=== PATIENT | female | born 1990 | race Caucasian/White ===

== ENCOUNTER → 2018-06-02 16:05 | Outpatient (CLI) | payer OTHER, SELFPAY ==
[2018-06-02 16:10] LABS: Microscopic, Urine URINE MICROSCOPIC (MICROSCOPIC)
[2018-06-02 16:32] LABS: Basophils % 0.6 % (0.1-2.0); Eosinophils # 0.1 K/mm3 (0.0-0.4); Eosinophils % 1.1 % (0.1-12.0); Hematocrit 36.4 % (37.0-47.0); Hemoglobin 11.8 g/dL (12.2-16.2); Lymphocytes % 33.6 K/mm3 (10-50); Mean Corpuscular HGB Conc 32.5 g/dL (31.8-35.4); Mean Corpuscular Hemoglobin 28.8 pg (27.0-31.2); Mean Corpuscular Volume 88.6 fl (81-99); Mean Platelet Volume 9.2 fl (7.4-10.4); Monocytes # 0.3 K/mm3 (0.1-1.0); Monocytes % 4.4 % (1.7-9.3); Neutrophils # 3.5 K/mm3 (1.8-7.8); Neutrophils % 60.3 % (37.0-80.0); Platelet Count 176 K/mm3 (142-424); Red Cell Distribution Width 14.2 % (11.5-17.5); White Blood Count 5.9 K/mm3 (4.8-10.8)
[2018-06-02 17:42] LABS: Appearance,Urine CLEAR (Clear); Bilirubin,Urine Negative (Negative); Blood, Urine Negative (Negative); Color,Urine YELLOW (Yellow); Glucose,Urine (UA) Negative (Negative); Ketones,Urine Negative (Negative); Leukocyte Esterase,Urine Negative (Negative); Nitrate,Urine Negative (Negative); Protein,Urine Negative (Negative); Specific Gravity, Urine >= 1.030 (1.005-1.030); Urobilinogen,Urine 0.2 EU/dl (0.2)
[2018-06-02 18:55] LABS: HCG Qualitative, Serum Negative (Negative)
[2018-06-02 19:24] LABS: Alanine Aminotransferase 19 U/L (12-78); Albumin Level 3.8 gm/dL (3.4-5.0); Albumin/Globulin Ratio 1.2 (1.1-1.8); Alkaline Phosphatase 45 U/L (46-116); Anion Gap 12.1 mEq/L (5-15); Aspartate Amino Transferase 10 U/L (15-37); Bilirubin,Total 0.2 mg/dL (0.2-1.0); Blood Urea Nitrogen 11 mg/dL (7-18); Calcium 8.7 mg/dL (8.5-10.1); Carbon Dioxide 27 mmol/L (21.0-32.0); Chloride 105 mmol/L (98-107); Creatinine,Serum 0.75 mg/dL (0.55-1.02); Estimated Glomerular Filt Rate 93 ml/min (>60); GFR (African American) 112 ML/MIN (>60); Globulin 3.1 gm/dl (1.3-3.2); Glucose 90 mg/dL (74-106); Potassium 4.1 mmoL/L (3.5-5.1); Sodium 140 mmol/L (136-145); Total Protein,Serum 6.9 gm/dL (6.4-8.2)
[2018-06-02 19:31] LABS: WBC,Urine Occasional #/hpf (0-3)
[2018-06-02 19:32] LABS: Bacteria,Urine Trace /lpf; Mucus,Urine 1+ /lpf; Squamous Epithelial Cell,Urine Occasional #/hpf (0-5)
== END ==
PROVIDERS: PCP Family Medicine; Visit Provider Obstetrics & Gynecology
DX: Z01.818 Encounter for other preprocedural examination (principal); Z30.2 Encounter for sterilization; D22.5 Melanocytic nevi of trunk
CPT/HCPCS: 36415; 80053; 81001; 84703; 85025

== ENCOUNTER → 2018-07-10 16:53 | Outpatient (CLI) | payer OTHER, SELFPAY | LOC: LAB 16:53 → LAB.DROPOF 07-11 08:44 | PROVIDERS: Visit Provider Obstetrics & Gynecology | DX: N72 Inflammatory disease of cervix uteri (principal) | CPT/HCPCS: 87070; 87077; 87205 ==

== ENCOUNTER → 2018-07-22 09:37 | Outpatient (CLI) | payer OTHER, SELFPAY ==
--- NOTE | 2018-07-22 09:38 | US_ITS ---
US transvaginal Ordering Physician: Danny May MD Patient Age: 28 years: Female HISTORY: ITS.REASON: PELVIC PAIN . Endometriosis. Irregular periods. Patient had child and December 2017. Had tubal ligation shortly thereafter. Now prolonged bleeding pelvic pain. Considering partial hysterectomy. TECHNIQUE: Transvaginal pelvic ultrasound COMPARISON :No previous studies FINDINGS Retroverted retroflexed uterus. No fibroids evident. Uterus appears normal in size 8.1 cm length x 4.4 cm x 5.3 cm Homogeneous hypoechoic thickening Endometrium-measuring up to 1.25 cm AP. Also note a small 5.5 x 8 mm mm focal fluid collection seen at top of the endometrium stripe at fundus...... No increased flow. No wall thickening. This may may reflect some blood or fluid at the top of endometrial stripe, rather than submucosal fluid. Ovaries with normal color Doppler flow bilaterally.. Right ovary 3.2 x 1.1 x 2.4 cm Several folliclesLargest follicle 8 mm. Left ovary is larger than the right measuring 4.1 cm 2.5 x 2.8 cm.. Numerous moderate size follicles. Largest 1.2 cm size. Others less than 8 days 10 mm.. . moderate amount of free fluid seen in the cul-de-sac. Most notable fluid collection here measuring 3 cm x 1.3 cm.. X 3.9 cm transverse. This this overlies the fundus of this retroverted uterus. IMPRESSION: Retroverted retroflexed uterus. Endometrial stripe appears thickened measuring up to 1.2 cm small focal fluid collection at top of the endometrial stripe towards fundus. . Left ovary upper normal in size 4.1 cm. Slightly larger than right. Moderate size Follicles of both ovaries . moderate free fluid the cul-de-sac. Noted
== END ==
PROVIDERS: PCP Family Medicine; Visit Provider Obstetrics & Gynecology
DX: R10.2 Pelvic and perineal pain (principal)
CPT/HCPCS: 76830

== ENCOUNTER → 2021-12-07 12:02 | Outpatient (CLI) | payer OTHER, SELFPAY ==
--- NOTE | 2021-12-07 12:10 | US_ITS ---
FINAL REPORT CLINICAL HISTORY: [facility] Pelvic Pain/Menorrhagia/dysmenorrhea FINDINGS: Transvaginal sonographic images of the pelvis were obtained. The uterus is mildly enlarged measuring 9.4 x 5.0 x 3.8 cm. The endometrium measures 8 mm, which is within normal limits. No uterine mass is identified. The right ovary measures 2.7 cm in length and left ovary measures 3.7 cm in length. Normal blood flow seen to the ovaries. There is a small 1.8 cm left ovarian cyst. There is no evidence of free fluid. IMPRESSION: Mildly enlarged uterus. 1.8 cm left ovarian cyst. Reviewed, Interpreted and Dictated by Cayetano Egan III, MD Transcribed by Sarah Chavez Authenticated by Cayetano Egan III, MD on 12/07/2021 02:17:[address] [facility]
[2021-12-07 12:57] LABS: Basophils # 0.1 K/mm3 (0-0.2); Basophils % 2.4 % (0.1-2.0); Eosinophils # 0.1 K/mm3 (0.0-0.4); Eosinophils % 1.1 % (0.1-12.0); Hematocrit 38.5 % (37.0-47.0); Hemoglobin 12.9 g/dL (12.2-16.2); Lymphocytes # 1.8 K/mm3 (0.7-4.5); Mean Corpuscular HGB Conc 33.6 g/dL (31.8-35.4); Mean Corpuscular Hemoglobin 32.5 pg (27.0-31.2); Mean Corpuscular Volume 96.5 fl (81-99); Mean Platelet Volume 9.6 fl (7.4-10.4); Monocytes # 0.3 K/mm3 (0.1-1.0); Monocytes % 5.4 % (1.7-9.3); Neutrophils # 3.3 K/mm3 (1.8-7.8); Neutrophils % 59.1 % (37.0-80.0); Platelet Count 185 K/mm3 (142-424); Red Blood Count 3.99 M/mm3 (4.20-5.40); Red Cell Distribution Width 13.9 % (11.5-17.5); White Blood Count 5.5 K/mm3 (4.8-10.8)
== END ==
PROVIDERS: Visit Provider Obstetrics & Gynecology
DX: N93.9 Abnormal uterine and vaginal bleeding, unspecified (principal); R10.2 Pelvic and perineal pain; N92.0 Excessive and frequent menstruation with regular cycle; N94.6 Dysmenorrhea, unspecified; G89.29 Other chronic pain; Z86.2 Personal history of diseases of the blood and blood-forming organs and certain disorders involving the immune mechanism
CPT/HCPCS: 36415; 76830; 84443; 85025

== ENCOUNTER → 2021-12-18 09:34 | Outpatient (CLI) | payer OTHER, SELFPAY ==
[2021-12-18 09:55] LABS: Basophils # 0.1 K/mm3 (0-0.2); Basophils % 1.3 % (0.1-2.0); Eosinophils # 0.1 K/mm3 (0.0-0.4); Eosinophils % 1.6 % (0.1-12.0); Hematocrit 40.3 % (37.0-47.0); Hemoglobin 13.4 g/dL (12.2-16.2); Lymphocytes # 1.6 K/mm3 (0.7-4.5); Lymphocytes % 21.1 % (10-50); Mean Corpuscular HGB Conc 33.1 g/dL (31.8-35.4); Mean Corpuscular Hemoglobin 31.8 pg (27.0-31.2); Mean Corpuscular Volume 95.8 fl (81-99); Mean Platelet Volume 9.8 fl (7.4-10.4); Monocytes # 0.4 K/mm3 (0.1-1.0); Monocytes % 5.2 % (1.7-9.3); Neutrophils # 5.3 K/mm3 (1.8-7.8); Neutrophils % 70.8 % (37.0-80.0); Platelet Count 160 K/mm3 (142-424); Red Blood Count 4.21 M/mm3 (4.20-5.40); Red Cell Distribution Width 13.9 % (11.5-17.5); White Blood Count 7.5 K/mm3 (4.8-10.8)
[2021-12-18 10:21] LABS: Alanine Aminotransferase 18 U/L (12-78); Albumin Level 4.4 g/dl (3.5-5.0); Alkaline Phosphatase 42 U/L (38-126); Anion Gap 12.8 mEq/L (5-15); Aspartate Amino Transferase 21 U/L (14-36); Bilirubin,Total 0.2 mg/dl (0.2-1.3); Blood Urea Nitrogen 10 mg/dl (7-17); Carbon Dioxide 24 mmol/L (22.0-30.0); Chloride 108 mmol/L (98-107); Estimated Glomerular Filt Rate 98 ml/min (>60); GFR (African American) 119 ML/MIN (>60); Globulin 2.2 g/dL (1.3-3.2); Glucose 55 mg/dl (74-100); Potassium 3.8 mmoL/L (3.5-5.1); Sodium 141 mmol/L (136-145); Total Protein,Serum 6.6 g/dl (6.3-8.2)
[2021-12-18 10:24] LABS: HCG Qualitative, Serum Negative (Negative)
== END ==
PROVIDERS: Visit Provider Obstetrics & Gynecology
DX: Z01.818 Encounter for other preprocedural examination (principal); Z11.52 Encounter for screening for COVID-19; R10.2 Pelvic and perineal pain; G89.29 Other chronic pain; N80.9 Endometriosis, unspecified; N92.0 Excessive and frequent menstruation with regular cycle; N94.6 Dysmenorrhea, unspecified
CPT/HCPCS: 36415; 80053; 84703; 85025; 86850; C9803; U0003; U0005

== ENCOUNTER 2021-12-20 10:27 | Observation (INO) | payer OTHER, SELFPAY ==
[2021-12-20] VITALS (23 sets, daily range): BP systolic 88–137; BP diastolic 40–71; PULSE 80–103; RESP 16–20; TEMP 36.4–43; O2SAT 95–100
--- NOTE | 2021-12-20 08:40 | P.PN_ITS ---
[facility] Anesthesia Checklist - Patient Identification Patient Identification: Arm Band - Structural Data Admitted From: Home Planned Operative Procedure/s: Lap. assisted vaginal hysterectomy Consent for Planned Operative Procedure(s) Verified: Yes - NPO Status Verified Time NPO: 00:00 - Additional verifications Anesthesia Reactions: No Hx Blood Transfusions: No Blood Transfusion Reaction: No - Airway Assessment C-Spine Mobility Assessed: Yes TMJ Mobility Assessed: Yes Dentition: Good Dentition - Neurological Assessment Level of Consciousness: Awake Hx Seizures: No Numbness or tingling in extremities: No - Anesthesia Plan Anesthesia Risk discussed: Yes Anesthesia Plan: Verified ASA Class: I Anesthesia Type: General [facility] History I have reviewed the patient's past medical history: Yes Medical History: Reports:: Anxiety Denies:: Cancer, Diabetes Mellitus Type 1, Diabetes Mellitus Type 2, Internal Pacemaker, MRSA *Have you ever received a pneumonia vaccine?: No *Have you received a flu vaccine this season?: No Other Medical History: Denies: Blood Transfusion Reaction Anesthesia experience/problems:: None Other Surgeries: Yes: Tubal Ligation (2018), Other. No: Pacemaker Amputation: No Fractures: No - *Social History Last grade of school completed: Advanced degree Smoking Status: Current every day smoker Tobacco Type: cigarettes # Packs/Day (cigarettes): 1 Alcohol Intake: never Alcohol Intake Frequency:: other Substance Use Type: denies use *Occupational Status:: employed Housing: house Household Members: children *Travel in the last 8 weeks: None - Psychiatric History Pschychiatric History:: Reports:: Anxiety Family Hx:: Asthma, Cancer, Diabetes, Hyperlipidemia, Hypertension FLOOR STEWARD/STEWARDESS history: Endometriosis, Tubal Ligation
[2021-12-20 10:01] LABS: Coronavirus 19, PCR Not Detected (NotDetected); Influenza A, PCR Not Detected (NotDetected); Influenza B, PCR Not Detected (NotDetected)
[2021-12-20 12:28] LABS: Microscopic,Cath URINE MICROSCOPIC (MICROSCOPIC)
[2021-12-20 12:38] LABS: Appearance,Urine/Cath CLEAR (Clear); Bilirubin,Cath Negative (Negative); Blood, Urine/Cath 1+ (Negative); Color,Urine/Cath YELLOW (Yellow); Glucose,Urine/Cath (UA) Negative (Negative); Ketones,Urine/Cath Negative (Negative); Leukocyte Esterase,Cath Negative (Negative); Nitrate,Cath Negative (Negative); PH,Urine/Cath 8.5 (5.0-8.5); Protein,Urine/Cath 2+ (Negative); Urobilinogen,Cath 0.2 EU/dl (0.2)
--- NOTE | 2021-12-20 12:42 | SUR.OPER ---
1238 family provided an update by karol Lawton RN
--- NOTE | 2021-12-20 13:03 | HMH.ANESI ---
[facility] Anesthesia Record Part I Intake, IV Amount: 1,200 Estimated blood loss (mL): 50 Urine output (mL): 150 Blood Pressure: 120/65 SaO2: 95 Pulse Rate: 91 Respiratory Rate: 17 Temperature: 97.5 F Patient is:: Awake Stable to PACU at:: 13:00
--- NOTE | 2021-12-20 13:13 | HMH.OPNOTE ---
Date of procedure: 12/20/21 Pre-op Diagnosis:: 1. Menorrhagia 2. Chronic pelvic pain 3. Dysmenorrhea 4. Dyspareunia 5. Endometriosis 6. History of thrombocytopenia Post-op Diagnosis:: 1. Menorrhagia 2. Chronic pelvic pain 3. Dysmenorrhea 4. Dyspareunia 5. Endometriosis 6. History of thrombocytopenia Procedure performed:: Laparoscopic assisted vaginal hysterectomy, bilateral salpingectomy Surgeon:: Sasha Hampton DO Nonprofit Financial Controller(s):: Foreign Weeks MD NUCLEAR POWERPLANT MECHANIC:: Amilcar Sewell Anesthesia: GETA Estimated blood loss (mL): 50 Operative findings:: On bimanual exam, uterus midline, freely moveable and normal size and shape. No adnexal masses palpated. Multiparous cervix appeared grossly normal. On laparoscopic exam, liver, gallbladder and stomach appeared grossly normal. Bowel appeared grossly normal. Uterus, bilateral fallopian tubes and ovaries appeared grossly normal. No evidence of adhesions or endometriosis Operative note:: Risks, benefits and alternatives including but not limited to infection, bleeding, damage to adjacent structures, VTE and risks with anesthesia discussed with patient. Patient voiced understanding and wishes to proceed with surgery. Patient was wheeled back to the operating room and placed under general anesthesia without difficulty. She was placed in the dorsal lithotomy position and prepped and draped in normal sterile fashion. A bimanual exam was performed. No adnexal masses felt. Chen catheter was placed and noted to be draining clear urine prior to the start of the procedure. Weighted Auvard was placed into the vaginal vault. Single tooth tenaculum was used to grasp anterior lip of the cervix. Uterus sound to 10. [place] manipulator was inserted into the cervical os and attached to the tenaculum. Attention was then turned to the abdomen. Skin just below umbilicus was injected with 0.5 % marcaine. A 2cm infraumbilical vertical incision was made. Veress needle was tested and inserted intraabdominally without difficulty. Opening pressure was 5 mm Hg. Abdomen was insulflated with CO2 gas to a pressure of 15 mm Hg. An 12 mm disposable trocar was inserted into the abdomen without difficulty. Obturator was removed and sleeve was left in place. Laparoscope was inserted through the trocar sleeve. Pelvis and abdomen was viewed in its entirety. Pictures were taken. See findings above. Left lower quadrant and right lower quadrant was transilluminated and skin incision site was injected with 0.5% marcaine. 5 mm skin incision were made in the left and right lower quadrant approximately 2 cm above and 2 cm medially to the ASIS. Disposable 5 mm trocars were placed bilaterally under direct laparoscopic visualization without difficulty. Graspers were used to grasp the fimbriated end of the left fallopian tube. The mesoovarium and mesosalpinx were doubly coagulated and transected with Harmonic scalpel without difficulty. Transection was carried through the round ligament and broad ligament in the same manner. Transection was carried down to the level of the uterine artery. The uterine artery was identified. It was doubly coagulated and transected with Harmonic scalpel. Vascular clip was placed on left uterine artery. Same procedure was carried out on the right side. Leaving both ovaries in situ. The anterior leaf of the broad ligament was then dissected to the midline bilaterally, establishing a bladder flap with a combination of sharp and blunt dissection. The laparoscope was removed and attention was turned to the vagina.The acorn manipulator and single tooth tenaculum were removed from the cervix. The anterior and posterior lips of the cervix were grasped with Ketty tenaculums. A circumferential injection with 0.5% marcaine was made at the cervicovaginal junction. A circumferential incision was made at the cervicovaginal junction. The anterior and posterior colopotomies were accomplished with a combination of blunt and sharp disse
[2021-12-20 13:34] LABS: Bacteria,Urine/Cath 2+ /lpf; RBC,Urine/Cath Occasional # /hpf (0-3); WBC,Urine/Cath Occasional #/hpf (0-3)
--- NOTE | 2021-12-20 14:46 | P.CONPHA_ITS ---
[facility] Pharmacy VTE Monitoring - Patient Demographics Admission date: 12/20/21 Report Date: 12/20/21 Time: 14:46 Allergies/Adverse Reactions: Patient Allergies hydromorphone [From Dilaudid] Allergy (Verified 12/20/21 08:13) Height: 1.68 m Weight: 56.245 kg - VTE Risk Clinical Trial Participant: No - Prophylaxis VTE Prophylaxis Ordered?: Yes Types of VTE Prophylaxis: IPCS Knee High (POST OP) Location of Applied Device: Bilateral Lower Extremeties
--- NOTE | 2021-12-20 15:44 | PC.NURSE ---
1453- Pt medicated with Dilaudid 1mg IV as well as Phenergan 6.25mg IV (both diluted) for pain. Rates pain at 10/10. Pt also provided with abdominal pillow and binder for pain relief / abd support.
--- NOTE | 2021-12-20 15:46 | PC.NURSE ---
1510-Pt assisted up to bathroom to void. [place] gown removed and regular gown put on. Bed draw sheet also changed. Peripad and panty applied while up to bathroom. Voiding was not measured. Pt did void a moderated amt of blood tinged urine. Assisted back to bed without difficulty. Scuds reapplied.
--- NOTE | 2021-12-20 15:49 | PC.NURSE ---
called and updated on pt's status and requesting a heating pad. V/O received for KPAD. R/V.
--- NOTE | 2021-12-20 15:53 | PC.NURSE ---
KPAD and Incentive Spirometer provided and usage explained. Verbalized understanding. Pt is drowsy at this time from previous pain medication.
--- NOTE | 2021-12-20 17:10 | PC.NURSE ---
Pt sleeping soundly at this time. Sig other at bs in sleep chair watching TV.
--- NOTE | 2021-12-20 17:40 | PC.NURSE ---
Pt assisted to bathroom to void again. Having slight difficulty this time emptying bladder. Had pt to lean forward and occasionally rock to assist with emptying. Pt was able to void more and denied feeling like she needed to go anymore. After assisting pt back to bed, urine specimen hat placed in toilet to measure next void. Pt sent to [facility] to get mashed potatoes to eat instead of hospital mashed potatoes.
--- NOTE | 2021-12-20 18:57 | PC.NURSE ---
Report to NOVA Feng.
--- NOTE | 2021-12-20 20:45 | PC.NURSE ---
WHEN ASKED IF THE PAIN MEDICINE HELPED SHE SAID DO YOU WANT ME TO LIE TO YOU OR TELL YOU THE TRUTH,I SAID THE TRUTH,SHE SAID IT REALLY DID NOT HELP,IT FEELS LIKE A CAT ON HER INSIDE SCRATCHING HER INSIDES.WILL GIVE HER HER BRANDO.TORADOL TO SEE IF THIS WILL HELP.PT HAS A HEATING PAD AND A BINDER ON HER ABD.
--- NOTE | 2021-12-20 22:30 | PC.NURSE ---
PT RANG OUT AND ASKED WHEN WOULD IT BE TIME FOR HER MEDICINE,TOLD HER 2300.PT REPORTS SHE JUST WOKE UP AND HAVING PAIN,TOLD HER I COULD GIVE IT TO HER ABOUT 15 MINS,AND SHE SAID THAT WOULD BE GREAT
--- NOTE | 2021-12-20 22:50 | PC.NURSE ---
ASSISTING PT UP TO BATHROOM,PEANUT BUTTER AND CRACKERS AND APPLE JUICE PROVIDED REQ.
--- NOTE | 2021-12-20 23:31 | PC.NURSE ---
PT SLEEPING SOUNDLY IN BED,RESP.EVEN AND UNLABORED
--- NOTE | 2021-12-21 01:05 | PC.NURSE ---
PT RANG OUT AND WANTED SOMETHING FOR NAUSEA,UPON ENTERING ROOM PT WAS IN THE BATHROOM,WITH RETURNING TO BED SHE SAID DID NOT THINK SHE SHOULD STILL HAVE THIS MUCH PAIN,REPORTED HER PAIN TO BE A 7 ON SCALE OF 0-10,SHE SAID THAT THE PAIN WAS CAUSING THE NAUSEA.TOLD HER THAT ALL SHE HAD THAT IT WAS TIME FOR WAS OXYCODONE AND THAT SHE SAID IT DID NOT TOUCH IT EARLIER,SHE SAID IT WAS WORTH A TRY,ZOFRAN 4 MG IVP WAS GIVEN AND THEN OXYCODONE 5MG PO AND TYLENOL 975MG PO WAS ALSO GIVEN BRANDO.
--- NOTE | 2021-12-21 01:54 | PC.NURSE ---
PT SLEEPING SOUNDLY,RESP.EVEN AND UNLABORED
[2021-12-21 02:20] VITALS: BP 81/45; PULSE 73; RESP 16; TEMP 36.8; O2SAT 97
--- NOTE | 2021-12-21 02:51 | PC.NURSE ---
PT HAS SLEPT OFF AND ON THROUGHTOUT THE NIGHT AFTER BEING MEDICATED,SHE REPORTS PAIN MEDICINE HAS REALLY NOT WORKED,REPORTS THE PAIN IS LIKE HAVING CONTRACTIONS,CRAMPING AND SHARP,REPORTS SHE IS PASSING FLATUS AND PT HAS VOIDED A TOTAL OF 400ML OF YELLOW URINE,SCANT VAG.BLEEDING,LAP SITES WITHOUT ANY NEW DRAINAGE.BOWEL SOUNDS NORMAL
--- NOTE | 2021-12-21 04:00 | PC.NURSE ---
AFTER REASSESING PAIN RELIEF,PT STILL C/O PAIN,THAT JUST WILL NOT GO AWAY,TRIED REASSURING PT THAT IF IT WAS GAS,THAT UP AMBULATING OR ROCKING IN CHAIR WOULD RELIEF THE GAS,PT REPORTED SHE HAD A LOT OF GAS EARLIER,OFFERED TO CALL AND PT REPORTED TO LET HER KNOW WHAT SHE SAID, WAS CALLED AND AN ORDER FOR A ONE TIME DOSE OF VISTORIL 25MG PO WAS TAKEN, SAID TO MAKE HER AWARE THAT ALL PAIN WILL NOT BE RELIEVED,WILL TAKE TIME,MAYBE VISTORIL WILL HELD HER SLEEP AND SHE WOULD TALK TO HER IN AM.
[2021-12-21 07:02] LABS: Basophils % 0.6 % (0.1-2.0); Eosinophils % 0.2 % (0.1-12.0); Hematocrit 28.1 % (37.0-47.0); Hemoglobin 9.6 g/dL (12.2-16.2); Lymphocytes # 1.1 K/mm3 (0.7-4.5); Lymphocytes % 14.2 % (10-50); Mean Corpuscular HGB Conc 34.1 g/dL (31.8-35.4); Mean Corpuscular Hemoglobin 32.5 pg (27.0-31.2); Mean Corpuscular Volume 95.4 fl (81-99); Mean Platelet Volume 9.8 fl (7.4-10.4); Monocytes # 0.3 K/mm3 (0.1-1.0); Monocytes % 4.4 % (1.7-9.3); Neutrophils # 6.1 K/mm3 (1.8-7.8); Neutrophils % 80.6 % (37.0-80.0); Platelet Count 126 K/mm3 (142-424); Red Blood Count 2.94 M/mm3 (4.20-5.40); Red Cell Distribution Width 13.8 % (11.5-17.5); White Blood Count 7.6 K/mm3 (4.8-10.8)
[2021-12-21 07:11] LABS: Anion Gap 6.6 mEq/L (5-15); Blood Urea Nitrogen 6 mg/dl (7-17); Calcium 7.6 mg/dl (8.4-10.2); Carbon Dioxide 22 mmol/L (22.0-30.0); Chloride 110 mmol/L (98-107); Creatinine Clearance Estimated 146 mL/min (50-200); Estimated Glomerular Filt Rate 145 ml/min (>60); GFR (African American) 175 ML/MIN (>60); Glucose 73 mg/dl (74-100); Potassium 3.6 mmoL/L (3.5-5.1); Sodium 135 mmol/L (136-145)
--- NOTE | 2021-12-21 07:26 | PC.NURSE ---
F/C removed by Dr. Hampton at the end of the procedure.
--- NOTE | 2021-12-21 07:49 | HMH.ANESII ---
[facility] Anesthesia Record Part II Discharge Time: 13:50 Destination: home PACU nurse assessment reviewed?: Yes Patient Condition:: Good Anesthesia Complications:: None Swallowing reflex intact?: Yes Cyanosis?: No Blood Pressure: 112/62 Pulse Rate: 103 Temperature: 98.6 F Mental Status: Alert & Oriented Pain level:: 6 Nausea and/or vomitting:: None Intake, IV Amount: 0
[2021-12-21 07:50] VITALS: BP 112/62; PULSE 103; TEMP 37
[2021-12-21 07:52] VITALS: BP 95/55; PULSE 83; RESP 18; TEMP 36.9; O2SAT 100
--- NOTE | 2021-12-21 09:36 | PC.NURSE ---
DR. HANDLEY BEDSIDE
--- NOTE | 2021-12-21 09:38 | PC.NURSE ---
0800 PT ASSISTED UP TO BATHROOM, MEDICATED FOR PAIN AT THIS TIME.
[2021-12-21 09:50] VITALS: O2SAT 100
--- NOTE | 2021-12-21 10:02 | HMH.HP ---
*Admission Date: 12/20/21 *Chief complaint: Chronic pelvic pain, Menorrhagia, dysmenorrhea, dyspareunia *History of present illness: Ms Yolie Johnston is a 31 yo [id number] who presents to [facility] for scheduled surgery. She complains of chronic pelvic pain, menorrhagia, severe dysmenorrhea and dyspareunia. FDLMP 11/29/21. The pain with her periods is debilitating. She tried Ibuprofen and then prescription Naproxen without relief. She was prescribed Tylenol #3 which just touched the pain and allowed her to get some rest. Pain and bleeding lasted 4 days. Heat offers some relief. She is not currently working. She states her employer fired her until after surgery. Pap smear was negative. Large amount of vaginal discharge noted during exam. Vaginal ID PCR demonstrated lactobacillus iners in the vagina. She was prescribed course of metronidazole. Pelvic ultrasound demonstrated mildly enlarged uterus measuring 9.4 x 5.0 x 3.8 cm. The endometrium measured 8 mm, which is within normal limits. No uterine mass is identified. The right ovary measures 2.7 cm in length and left ovary measures 3.7 cm in length. Normal blood flow seen to the ovaries. There was a small 1.8 cm left ovarian cyst. TSH and CBC within normal limits. [facility] History Medical History: Reports:: Anxiety Denies:: Cancer, Diabetes Mellitus Type 1, Diabetes Mellitus Type 2, Internal Pacemaker, MRSA, Seizures *Have you ever received a pneumonia vaccine?: No *Have you received a flu vaccine this season?: Yes Other Medical History: Reports: Other. Denies: Blood Transfusion Reaction Anesthesia experience/problems:: None Other Surgeries: Yes: Tubal Ligation (2018), Other. No: Pacemaker Amputation: No Fractures: No - *Social History Last grade of school completed: Advanced degree Smoking Status: Current every day smoker Tobacco Type: cigarettes # Packs/Day (cigarettes): 1 Alcohol Intake: never Alcohol Intake Frequency:: other Substance Use Type: denies use *Occupational Status:: employed Housing: house Household Members: children *Travel in the last 8 weeks: None - Psychiatric History Pschychiatric History:: Reports:: Anxiety Family Hx:: Asthma, Cancer, Diabetes, Hyperlipidemia, Hypertension DISK RECORDIST history: Endometriosis, Tubal Ligation Review of Systems - Constitutional Denies chills, Denies fever(s), Denies headache(s) - Eyes Denies blurry vision, Denies change in vision - ENT Denies difficulty swallowing, Denies headache(s), Denies nasal congestion - *Cardiovascular Denies chest pain, Denies shortness of breath, Denies leg swelling, Denies lightheadedness - *Respiratory Denies chest congestion, Denies cough, Denies shortness of breath - *Gastrointestinal Reports abdominal pain, Denies change in bowel habits, Denies constipation, Denies loose stools, Denies nausea, Denies vomiting - *Genitourinary Reports abnormal periods, Reports painful periods, Reports painful intercourse, Denies urinary incontinence, Denies urinary urgency, Denies vaginal discharge - *Musculoskeletal Denies muscle weakness, Denies body aches - *Neurologic Denies abnormal movements, Denies abnormal speech, Denies headache(s), Denies dizziness - Psychiatric Reports anxiety Meds Home Medications Medication Instructions Recorded Confirmed Type metroNIDAZOLE [Metronidazole] 500 mg PO BID 12/18/21 12/20/21 History Allergies Allergy/AdvReac Type Severity Reaction Status Date / Time hydromorphone [From Dilaudid] Allergy Verified 12/20/21 08:13 Exam Vital signs and Labs for Last 24 Hours: Temp Pulse Resp BP Pulse Ox 98.4 F 83 18 95/55 L 100 12/21/21 07:52 12/21/21 07:52 12/21/21 07:52 12/21/21 07:52 12/21/21 07:52 Laboratory Results - last 24 hr 12/20/21 09:56: SARS-CoV-2 (PCR) Not detected, Influenza A Untype (PCR) Not detected, Influenza Type B (PCR) Not detected 12/20/21 10:43: Urine Color Yellow, Urine Appearance Clear, Urine pH 8.5, Ur Specific Gravit
--- NOTE | 2021-12-21 10:23 | HMH.DCSUM ---
General - General Admission date:: 12/20/21 Discharge date: 12/21/21 HPI HPI: Ms Yolie Johnston is a 31 yo P3003 who presents to [facility] for scheduled surgery. She complains of chronic pelvic pain, menorrhagia, severe dysmenorrhea and dyspareunia. FDLMP 11/29/21. The pain with her periods is debilitating. She tried Ibuprofen and then prescription Naproxen without relief. She was prescribed Tylenol #3 which just touched the pain and allowed her to get some rest. Pain and bleeding lasted 4 days. Heat offers some relief. She is not currently working. She states her employer fired her until after surgery. Pap smear was negative. Large amount of vaginal discharge noted during exam. Vaginal ID PCR demonstrated lactobacillus iners in the vagina. She was prescribed course of metronidazole. Pelvic ultrasound demonstrated mildly enlarged uterus measuring 9.4 x 5.0 x 3.8 cm. The endometrium measured 8 mm, which is within normal limits. No uterine mass is identified. The right ovary measures 2.7 cm in length and left ovary measures 3.7 cm in length. Normal blood flow seen to the ovaries. There was a small 1.8 cm left ovarian cyst. TSH and CBC within normal limits. Hospital Course Hospital Course: POD # 1 s/p LAVH. BS - Patient was recovering well for postoperative day. Patient reports pain not well controlled over night but better controlled with PO medication this morning. Vital signs were: BP 95/55, HR 83, R 18, T 98.4. She was voiding without difficulty and passing flatus. Heart was regular rate and rhythm. Lungs were clear to auscultation. Abdomen was soft, nondistended, appropriate tenderness to palpation. Incisions were clean/dry and intact. Steri strips covering the incisions. Extremities were non edematous. Normal hospital course. Objective Vital signs: Temp Pulse Resp BP Pulse Ox 98.4 F 83 18 95/55 L 100 12/21/21 07:52 12/21/21 07:52 12/21/21 07:52 12/21/21 07:52 12/21/21 09:50 no acute distress - *Routine HEENT Exam Head: Present: normocephalic Eye: Absent: conjunctivae pink ENT: Present: mucous membranes moist - *Routine Neck Exam Present: full ROM - *Routine Respiratory Exam Present: CTA bilaterally - *Routine Cardiovascular Exam Present: RRR - *Routine Abdominal Exam Present: soft, normoactive bowel sounds. Absent: distended, mass Comments: appropriate mild tenderness to palpation - *Routine Extremities Exam Present: full ROM. Absent: clubbing, edema, calf tenderness - *Routine Skin Exam Absent: cyanosis, erythema, jaundice - *Routine Neurological Exam Present: alert, oriented X3, moving all extremities Results Labs on day of discharge: Labs from last 24 hours 12/21/21 12/21/21 12/20/21 06:52 06:52 10:43 WBC 7.6 RBC 2.94 L D Hgb 9.6 L Hct 28.1 L MCV 95.4 MCH 32.5 H MCHC 34.1 RDW 13.8 Plt Count 126 L MPV 9.8 Neut % (Auto) 80.6 H Lymph % (Auto) 14.2 [place] % (Auto) 4.4 Eos % (Auto) 0.2 Baso % (Auto) 0.6 Neut # (Auto) 6.1 Lymph # (Auto) 1.1 [place] # (Auto) 0.3 Eos # (Auto) 0.0 Baso # (Auto) 0.0 Sodium 135 L Potassium 3.6 Chloride 110 H Carbon Dioxide 22 Anion Gap 6.6 BUN 6 L D Creatinine 0.50 L D Estimated Creat Clear 146 Estimated GFR 145 Est GFR ( Amer) 175 D Glucose 73 L Calcium 7.6 L Urine Color Yellow Urine Appearance Clear Urine pH 8.5 Ur Specific [place] 1.020 Urine Protein 2+ Urine Glucose (UA) Negative Urine Ketones Negative Urine Blood 1+ Urine Nitrate Negative Urine Bilirubin Negative Urine Urobilinogen 0.2 Ur Leukocyte Esterase Negative Urine RBC Occasional Urine WBC Occasional Ur Squamous Epith Cells 3-5 Urine Bacteria 2+ A SARS-CoV-2 (PCR) Influenza A Untype (PCR) Influenza Type B (PCR) 12/20/21 09:56 WBC RBC Hgb Hct MCV MCH MCHC RDW Plt
== END 2021-12-21 10:50 | disposition home or self-care (01) ==
LOC: OB 10:28
PROVIDERS: Admitting Provider Obstetrics & Gynecology; PCP Family Medicine; Visit Provider Obstetrics & Gynecology
PROC: 0UT9FZZ Resection of Uterus, Via Natural or Artificial Opening With Percutaneous Endoscopic Assistance (ICD-10-PCS; CPT 58552; principal; 2021-12-20 09:45)
DX: N92.0 Excessive and frequent menstruation with regular cycle (principal); R10.2 Pelvic and perineal pain; N94.6 Dysmenorrhea, unspecified; N80.9 Endometriosis, unspecified; F17.210 Nicotine dependence, cigarettes, uncomplicated; Z20.822 Contact with and (suspected) exposure to COVID-19; D62 Acute posthemorrhagic anemia
CPT/HCPCS: 58552; 36415; 80048; 81001; 85025; 87086; 96374; C9803; G0378; J2405; U0003; U0005

== ENCOUNTER 2023-05-27 22:34 | Emergency (ER) | payer OTHER, SELFPAY ==
[2023-05-27 22:51] VITALS: BP 166/89; PULSE 89; RESP 20; TEMP 36.9; O2SAT 98; BMI 20.3
--- NOTE | 2023-05-27 22:59 | HMH.EDGENADL ---
Discharge Plan Disposition Patient Disposition: Home, Self-Care Condition: Good Prescriptions Prescriptions: No Action No Known Home Medications Referrals Follow up/Referrals: Provider,MD Hardik [Primary Care Provider] - See instructions Activity Restrictions/Add. Instructions Additional Instructions/Restrictions: At this time it was felt you are safe to be discharged home. If new or worsening symptoms please do not hesitate to return the emergency department. Please continue to follow-up with your dentist and take your antibiotics as discussed. Clinical Impressions Clinical Impression: Pain, dental Instructions Patient Instructions: DI for Dental Pain Discharge ED Provider: Alexus German General Adult HPI <Nishant Willingham MD - Last Filed: 05/27/23 23:16> General Chief complaint: Dental/Oral Stated complaint: mouth/jaw pain Time Seen by Provider: 05/27/23 22:42 Mode of Arrival: Ambulatory Source of Information: Patient Limitations: No Limitations Description of Symptoms (Recalled from ER Triage Doc. by RN): Patient has had pain in the left jacqui eof her mouth for two days. States that she went to the denist today and he said there was a pocket of infection put her on amoxicillin ibuprofen and norco. History of Present Illness HPI narrative: Patient is a 33-year-old female who presents emergency department for evaluation of dental pain. History is obtained by patient at bedside. Patient chipped her mandibular molar on a pistachio approximately 2 weeks ago, last week she had progressive pain over the site of her chipped tooth where she put a home self patch kit on. Due to worsening symptoms she presented to the dentist today who diagnosed her with periapical infection and put her on amoxicillin and discharged her with narcotics with instructions to take amoxicillin for 7 days until teeth can be extracted. Due to severe pain she presents here for continued evaluation. Pain is refractory to [id number] numbing. Related Data Home Medications Medication Instructions Recorded Confirmed No Known Home Medications 04/03/22 07/05/22 Allergies Allergy/AdvReac Type Severity Reaction Status Date / Time hydromorphone [From Dilaudid] Allergy Verified 07/05/22 11:15 PFSH <Nishant Willingham MD - Last Filed: 05/27/23 23:16> [facility] Disclaimer: The information contained in this section may have been updated after the patient was seen, as this information can be updated by other users. Medical History (Updated 05/27/23 @ 23:16 by Nishant Willingham MD) Asthma Chronic pelvic pain in female Dysmenorrhea Endometriosis determined by laparoscopy Physically able to work Postoperative anemia due to acute blood loss Routine physical examination Surgical History (Updated 04/03/22 @ 14:32 by Meagan Ochoa) History of hysterectomy History of tubal ligation Social History (Updated 04/03/22 @ 14:32 by Meagan Ochoa) Smoking Status: Current every day smoker tobacco type: cigarettes packs per day: 1 second hand exposure: No alcohol intake: never substance use type: denies use current occupational status: employed Travel in the last 8 weeks: None household members: children housing: house 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 Tooth tenderness. No significant fluctuance. No trismus.) Neck Neck exam: Present normal inspection Chest Chest inspection: Present normal ins
[2023-05-27 23:53] VITALS: BP 143/86; PULSE 81; RESP 20; TEMP 36.9
== END 2023-05-27 23:58 | disposition home or self-care (01) ==
PROVIDERS: Emergency Provider Emergency Medicine
DX: R68.84 Jaw pain (principal); K08.89 Other specified disorders of teeth and supporting structures; F17.210 Nicotine dependence, cigarettes, uncomplicated; J45.909 Unspecified asthma, uncomplicated
CPT/HCPCS: 99283

== ENCOUNTER 2023-06-21 19:25 | Emergency (ER) | payer OTHER, SELFPAY ==
--- NOTE | 2023-06-21 19:33 | XR_ITS ---
PROCEDURE INFORMATION: Exam: XR Left Hand Exam date and time: 06/21/2023 7:30 PM Age: 33 years old Clinical indication: Injury or trauma; Other: Dog pulled on thumb; Blunt trauma (contusions or hematomas); Hand; Left TECHNIQUE: Imaging protocol: Radiologic exam of the left hand. Views: 3 or more views. COMPARISON: No relevant prior studies available. FINDINGS: Bones/joints: No acute fracture or dislocation. Soft tissues: Normal. IMPRESSION: No acute fracture or dislocation.
[2023-06-21 19:45] VITALS: BP 134/83; PULSE 89; RESP 18; TEMP 36.9; O2SAT 99; BMI 20.9
--- NOTE | 2023-06-21 19:53 | EXP.UTC ---
Discharge Plan Disposition Patient Disposition: Home, Self-Care Condition: Good Prescriptions Prescriptions: No Action No Known Home Medications Referrals Follow up/Referrals: Sandy Peralta MD [Primary Care Provider] - See instructions Activity Restrictions/Add. Instructions Additional Instructions/Restrictions: *RICE, Rest the extremity, Ice 15-20 minutes 3-4 times daily, Compress- wear the wan wrap as discussed as much as possible to help reduce swelling and pain, Elevate the extremity when at rest *Wan wrap is for support and help control swelling, use it except in the shower. Be sure that is not to tight but not to loose either *Elevate when resting? *Ibuprofen 600-800mg every 6-8 hours as needed for pain an inflammation. If need something more can take Tylenol in between doses of Ibuprofen to help Immediately follow up with your family doctor for new or worsening of symptoms, or no noticeable improvement over the next 3-5 days Clinical Impressions Clinical Impression: Left thumb sprain Qualifiers: Encounter type: initial encounter Sprain of finger site: unspecified site Qualified Code(s): S63.602A - Unspecified sprain of left thumb, initial encounter Instructions Patient Instructions: DI for Finger Sprain, How To Perform RICE (Rest, Ice, Compress, Elevate) Discharge ED Provider: Gypsy Ruffin [facility] [place] HPI General Stated complaint: AO11@1500 LT hand inj Mode of Arrival: Ambulatory Source of Information: Patient Limitations: No Limitations Time Seen by Provider: 06/21/23 19:53 Description of Symptoms (Recalled from Triage Doc. 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 HEENT Symptoms (Recalled from RN notes): No Resp Symptoms (Recalled from RN notes): No Skin Symptoms (Recalled from RN notes): No MS Symptoms (Recalled from RN notes): Yes Functional Status (Recalled from RN notes): WNL History of Present Illness Provider Complaint: Patient states that she picked up her dog about 3 hours ago and it was wiggling and bent her left thumb back States that she has been having pain in her left thumb with movement States that she was still having pain so she came in to get it checked and an xray to make sure she didnt break it or something Related Data Home Medications Medication Instructions Recorded Confirmed No Known Home Medications 04/03/22 07/05/22 Allergies Allergy/AdvReac Type Severity Reaction Status Date / Time hydromorphone [From Dilaudid] Allergy Verified 07/05/22 11:15 Worker's Comp Is this a Worker's Comp case?: No [facility] Disclaimer: The information contained in this section may have been updated after the patient was seen, as this information can be updated by other users. Medical History (Updated 06/21/23 @ 20:17 by Gypsy Ruffin APRN) Anxiety Asthma Chronic pelvic pain in female Depression Dysmenorrhea Endometriosis determined by laparoscopy Physically able to work Postoperative anemia due to acute blood loss Routine physical examination Surgical History History of hysterectomy History of tubal ligation Social History (Updated 04/03/22 @ 14:32 by Meagan Ochoa) Smoking Status: Current every day smoker tobacco type: cigarettes packs per day: 1 second hand exposure: No alcohol intake: never substance use type: denies use current occupational status: employed Travel in the last 8 weeks: None household members: children housing: house 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
[2023-06-21 20:13] VITALS: BP 134/83; PULSE 89; RESP 18; TEMP 36.9; O2SAT 99
== END 2023-06-21 20:25 | disposition home or self-care (01) ==
PROVIDERS: Emergency Provider Nurse Practitioner; PCP Family Medicine
DX: S63.602A Unspecified sprain of left thumb, initial encounter (principal); F17.210 Nicotine dependence, cigarettes, uncomplicated; J45.909 Unspecified asthma, uncomplicated; W23.0XXA Caught, crushed, jammed, or pinched between moving objects, initial encounter
CPT/HCPCS: 73130; 99204; 99212; G0463

== ENCOUNTER 2024-02-05 14:55 | Emergency (ER) | payer SELFPAY ==
[2024-02-05 14:56] VITALS: BP 132/77; PULSE 124; RESP 18; TEMP 36.9; O2SAT 100; BMI 20.9
--- NOTE | 2024-02-05 15:04 | HMH.EDGENADL ---
Discharge Plan Disposition Patient Disposition: Home, Self-Care Condition: Fair Prescriptions Prescriptions: New doxycycline hyclate 100 mg capsule 100 mg PO BID 7 Days Qty: 14 0RF prednisone 50 mg tablet 50 mg PO DAILY 5 Days Qty: 5 0RF Referrals Follow up/Referrals: Sandy Peralta MD [Primary Care Provider] - See instructions Activity Restrictions/Add. Instructions Additional Instructions/Restrictions: Return to ER for any worsening signs or symptoms including shortness of breath increasing pain fever inability to tolerate oral intake. Follow-up with PCP as needed.. Clinical Impressions Clinical Impression: Rash Bug bite Qualifiers: Encounter type: initial encounter Qualified Code(s): W57.XXXA - Bitten or stung by nonvenomous insect and other nonvenomous arthropods, initial encounter Instructions Patient Instructions: DI for Rash Discharge ED Provider: Vladimir Velásquez General Adult HPI <AVILA Snowden - Last Filed: 02/05/24 17:41> General Chief complaint: Skin/Abscess/Foreign Body Stated complaint: red, swollen raised bite under right arm, rash Time Seen by Provider: 02/05/24 14:57 History of Present Illness HPI narrative: Patient presents for evaluation of a body wide rash. Patient states 2 days ago she felt something land around her right axilla and swatted away and had no sensation of stinging or biting. However she has had progressive redness that is now expanded to her entire body. The rash is nonpruritic however she feels like her heart is racing but no shortness of breath difficulty breathing difficulty eating or swallowing. She denies chest pain fever chills hemoptysis hematochezia melena nausea vomiting diarrhea. Related Data Previous Rx's Medication Instructions Recorded doxycycline hyclate 100 mg capsule 100 mg PO BID 7 days #14 caps 02/05/24 prednisone 50 mg tablet 50 mg PO DAILY 5 days #5 tabs 02/05/24 Allergies Allergy/AdvReac Type Severity Reaction Status Date / Time hydromorphone [From Dilaudid] Allergy Verified 07/05/22 11:15 [facility] <AVILA Snowden - Last Filed: 02/05/24 17:41> [facility] Disclaimer: The information contained in this section may have been updated after the patient was seen, as this information can be updated by other users. Medical History (Updated 02/05/24 @ 17:41 by AVILA Snowden) Depression Anxiety Routine physical examination Physically able to work Asthma Postoperative anemia due to acute blood loss Chronic pelvic pain in female Dysmenorrhea Endometriosis determined by laparoscopy Surgical History History of tubal ligation History of hysterectomy Social History (Updated 04/03/22 @ 14:32 by Meagan Ochoa) Smoking Status: Current every day smoker tobacco type: cigarettes packs per day: 1 second hand exposure: No alcohol intake: never substance use type: denies use current occupational status: employed Travel in the last 8 weeks: None household members: children housing: house 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 current occupational exposures/hazards: No caffeine: Yes <AVILA Snowden - Last Filed: 02/05/24 17:41> ROS Obtained: Yes Systems reviewed as appropriate & no additional complaints except as documented Physical Exam <AVILA Snowden - Last Filed: 02/05/24 17:41> General General appearance: alert and in no apparent distress ENT ENT exam: Present normal exam, normal oropharynx and mucous membranes moist Respiratory Respiratory exam: Present normal lung sounds bilaterally; Absent respiratory distress, wheezes, stridor or accessory muscle use Cardiovascular Cardiovascular exam: Present normal rhythm, tachycardia and normal heart sounds Extremities Exam Extremities exam: Present normal inspection and full ROM Neurological Exam Neurological exam: Present alert and oriented X3 Expanded Skin Exam Type of lesion: Present rash and bite/sting (In the right axilla with localized edema and induration but no fluctuance) Distribution: generalized (Rash involving the entire visible skin) Description: Present erythematous (Rash) and confluent (Rash) Medical Decision Making <AVILA Snowden - Last Filed: 02/05/24 17:41> Medical Records Medical records reviewed: Yes I reviewed the patient's medical records. Jose Inquiry Pt receiving controlled substance: No Vital Signs: 02/05/24 14:56 02/05/24 16:30 02/05/24 17:00 Temperature 98.5 F Temperature Source Oral Pulse Rate 95 H 98 H Pulse Rate [Radial] 124 H Respiratory Rate 18 Blood Pressure 106/62 L 112/70 Blood Pressure [Left Arm] 132/77 Blood Pressure Mean Blood Pressure Mean [Left Arm] 95 Blood Pressure Source [Left Arm] Automatic Cuff Blood Pressure Position [Left Arm] Sitting 02 Sat by Pulse Oximetry 100 100 100 Oxygen Delivery Method Room Air Room Air 02/05/24 17:31 02/05/24 18:16 Temperature 97.9 F Temperature Source Pulse Rate 98 H 65 Pulse Rate [Radial] Respiratory Rate 15 Blood Pressure 120/69 101/65 L Blood Pressure [Left Arm] Blood Pressure Mean 78 Blood Pressure Mean [Left Arm] Blood Pressure Source [Left Arm] Blood Pressure Position [Left Arm] 02 Sat by Pulse Oximetry 100 Oxygen Delivery Method Room Air Lab Data Lab results reviewed: Yes I reviewed the patient's lab results. Lab Results 02/05/24 15:08: Urine Color [place], Urine Appearance Clear, Urine pH 6.0, Ur Specific [place] 1.025, Urine Protein Negative, Urine Glucose (UA) Negative, Urine Ketones Negative, Urine Blood Negative, Urine Nitrate Negative, Urine Bilirubin Negative, Urine Urobilinogen 1.0, Ur Leukocyte Esterase Negative, Urine RBC Occasional, Urine WBC None, Ur Squamous Epith Cells 5-10, Urine Bacteria Trace, Urine HCG, Qual Negative 02/05/24 15:28: WBC 7.6, RBC 3.96 L, Hgb 12.3, Hct 36.3 L, MCV 91.7, MCH 31.1, MCHC 33.9, RDW 13.4, Plt Count 155, MPV 8.8, Neut % (Auto) 83.8 H, Lymph % (Auto) 10.5, [place] % (Auto) 3.6, Eos % (Auto) 1.9, Baso % (Auto) 0.2, Neut # (Auto) 6.4, Lymph # (Auto) 0.8, [place] # (Auto) 0.3, Eos # (Auto) 0.1, Baso # (Auto) 0.0, ESR 16, Sodium 140, Potassium 3.5, Chloride 107, Carbon Dioxide 27, Anion Gap 9.5, BUN 10, Creatinine 0.90, Estimated Creat Clear 84, Estimated GFR 73, Est GFR ( Amer) 88, Glucose 87, Calcium 9.1, Total Bilirubin 1.0, AST 22, ALT 19, Alkaline Phosphatase 62, Total Protein 6.9, Albumin 4.3, Globulin 2.6, Albumin/Globulin Ratio 1.7, TSH 1.11 02/05/24 15:28 02/05/24 15:28 Orders (Tests/Meds): ED MEDICATIONS Discontinued Medications Generic Name Dose Route Start Last Admin Trade Name [place] PRN Reason Stop Dose Admin Acetaminophen 1,000 mg 02/05/24 15:11 02/05/24 15:38 Acetaminophen 1,000mg/100ml Vial IV 02/05/24 15:12 1,000 mg ONCE ONE Administration Diphenhydramine HCl 50 mg 02/05/24 15:11 02/05/24 15:37 Diphenhydramine 50mg/Ml Vial IV 02/05/24 15:12 50 mg ONCE ONE Administration Famotidine 40 mg 02/05/24 16:41 02/05/24 16:50 Famotidine 20mg Tablet PO 02/05/24 16:42 40 mg ONCE ONE Administration Doxycycline Hyclate 200 mg/ 250 mls @ 166.667 mls/hr 02/05/24 15:58 02/05/24 16:07 Sodium Chloride IV 02/05/24 15:59 166.667 mls/hr ONCE ONE Administration Sodium Chloride 500 mls @ 999 mls/hr 02/05/24 16:43 Sod Chlor 0.9% 1000ml Bag IV 02/05/24 17:13 .Q31M ONE Ketorolac Tromethamine 15 mg 02/05/24 15:11 02/05/24 15:37 Ketorolac 30mg/Ml Vial IV 02/05/24 15:12 15 mg ONCE ONE Administration Methylprednisolone Sodium Succinate 125 mg 02/05/24 15:11 02/05/24 15:38 Methylprednisolone Sod Succ 125mg Vial IV 02/05/24 15:12 125 mg ONCE ONE Administration Oxycodone HCl 5 mg 02/05/24 16:40 02/05/24 17:34 Oxycodone 5mg Immediate Release Tablet PO 02/05/24 16:41 Not Given ONCE ONE Sodium Chloride 10 ml 02/05/24 15:29 Sodium Chloride 0.9% 10ml Flush Syringe IV 03/06/24 15:28 NEEDED PRN Maintain IV Site ORDERS Category Date Time Status CBC w/Auto Diff [Complete Blood Count Auto Diff] Stat Lab 02/05/24 15:28 Completed CMP [Comprehensive Metabolic Panel] Stat Lab 02/05/24 15:28 Completed ESR [Erythrocyte Sedimentation Rate] Stat Lab 02/05/24 15:28 Completed TSH [Thyroid Stimulating Hormone] Stat Lab 02/05/24 15:28 Completed UA [Urinalysis and Microscopic] Stat Lab 02/05/24 15:08 Completed Urine , HCG Qual. Stat Lab 02/05/24 15:08 Completed Medical Decision Narrative: In summary patient is a 33-year-old female who presents to the emergency department for evaluation of a rash, bug bite and tachycardia. Patient is normotensive with a blood pressure 132/77 heart rate at 124 upon arrival, but afebrile. Physical exam shows a area that appears to be a puncture wound or bite in the right axilla without any fluctuance. There is localized edema and induration surrounding this. Patient has a body wide erythematous confluent flat nonpruritic rash involving all extremities and her front and back torso. Differential diagnosis includes anaphylaxis versus tickborne disease etc. Initial workup will be conducted with hematologic labs urinalysis urine . Initial interventions include crystalloid bolus Toradol Tylenol Benadryl Solu-Medrol. Initial workup reviewed by me shows that her hematologic workup is unremarkable and nonactionable. Upon repeat evaluation patient has had resolution of her tachycardia however the rash is still been mostly refractory.. Given this Dr. Velásquez and myself had an interactive discussion with the patient regarding her symptoms and plan. She has been given first dose of doxycycline with prescription sent to her pharmacy and first dose of corticosteroids. Patient is agreeable via patient directed discharge with close follow-up with her PCP return to the ER for worsening symptoms including shortness of breath pain fever difficulty breathing or swallowing. <Vladimir Velásquez MD - Last Filed: 02/05/24 20:46> Vital Signs: 02/05/24 14:56 02/05/24 16:30 02/05/24 17:00 Temperature 98.5 F Temperature Source Oral Pulse Rate 95 H 98 H Pulse Rate [Radial] 124 H Respiratory Rate 18 Blood Pressure 106/62 L 112/70 Blood Pressure [Left Arm] 132/77 Blood Pressure Mean Blood Pressure Mean [Left Arm] 95 Blood Pressure Source [Left Arm] Automatic Cuff Blood Pressure Position [Left Arm] Sitting 02 Sat by Pulse Oximetry 100 100 100 Oxygen Delivery Method Room Air Room Air 02/05/24 17:31 02/05/24 18:16 Temperature 97.9 F Temperature Source Pulse Rate 98 H 65 Pulse Rate [Radial] Respiratory Rate 15 Blood Pressure 120/69 101/65 L Blood Pressure [Left Arm] Blood Pressure Mean 78 Blood Pressure Mean [Left Arm] Blood Pressure Source [Left Arm] Blood Pressure Position [Left Arm] 02 Sat by Pulse Oximetry 100 Oxygen Delivery Method Room Air Lab Data Lab Results 02/05/24 15:08: Urine Color [place], Urine Appearance Clear, Urine pH 6.0, Ur Specific [place] 1.025, Urine Protein Negative, Urine Glucose (UA) Negative, Urine Ketones Negative, Urine Blood Negative, Urine Nitrate Negative, Urine Bilirubin Negative, Urine Urobilinogen 1.0, Ur Leukocyte Esterase Negative, Urine RBC Occasional, Urine WBC None, Ur Squamous Epith Cells 5-10, Urine Bacteria Trace, Urine HCG, Qual Negative 02/05/24 15:28: WBC 7.6, RBC 3.96 L, Hgb 12.3, Hct 36.3 L, MCV 91.7, MCH 31.1, MCHC 33.9, RDW 13.4, Plt Count 155, MPV 8.8, Neut % (Auto) 83.8 H, Lymph % (Auto) 10.5, [place] % (Auto) 3.6, Eos % (Auto) 1.9, Baso % (Auto) 0.2, Neut # (Auto) 6.4, Lymph # (Auto) 0.8, [place] # (Auto) 0.3, Eos # (Auto) 0.1, Baso # (Auto) 0.0, ESR 16, Sodium 140, Potassium 3.5, Chloride 107, Carbon Dioxide 27, Anion Gap 9.5, BUN 10, Creatinine 0.90, Estimated Creat Clear 84, Estimated GFR 73, Est GFR ( Amer) 88, Glucose 87, Calcium 9.1, Total Bilirubin 1.0, AST 22, ALT 19, Alkaline Phosphatase 62, Total Protein 6.9, Albumin 4.3, Globulin 2.6, Albumin/Globulin Ratio 1.7, TSH 1.11 Orders (Tests/Meds): ED MEDICATIONS Discontinued Medications Generic Name Dose Route Start Last Admin Trade Name Freq PRN Reason Stop Dose Admin Acetaminophen 1,000 mg 02/05/24 15:11 02/05/24 15:38 Acetaminophen 1,000mg/100ml Vial IV 02/05/24 15:12 1,000 mg ONCE ONE Administration Diphenhydramine HCl 50 mg 02/05/24 15:11 02/05/24 15:37 Diphenhydramine 50mg/Ml Vial IV 02/05/24 15:12 50 mg ONCE ONE Administration Famotidine 40 mg 02/05/24 16:41 02/05/24 16:50 Famotidine 20mg Tablet PO 02/05/24 16:42 40 mg ONCE ONE Administration Doxycycline Hyclate 200 mg/ 250 mls @ 166.667 mls/hr 02/05/24 15:58 02/05/24 16:07 Sodium Chloride IV 02/05/24 15:59 166.667 mls/hr ONCE ONE Administration Sodium Chloride 500 mls @ 999 mls/hr 02/05/24 16:43 Sod Chlor 0.9% 1000ml Bag IV 02/05/24 17:13 .Q31M ONE Ketorolac Tromethamine 15 mg 02/05/24 15:11 02/05/24 15:37 Ketorolac 30mg/Ml Vial IV 02/05/24 15:12 15 mg ONCE ONE Administration Methylprednisolone Sodium Succinate 125 mg 02/05/24 15:11 02/05/24 15:38 Methylprednisolone Sod Succ 125mg Vial IV 02/05/24 15:12 125 mg ONCE ONE Administration Oxycodone HCl 5 mg 02/05/24 16:40 02/05/24 17:34 Oxycodone 5mg Immediate Release Tablet PO 02/05/24 16:41 Not Given ONCE ONE Sodium Chloride 10 ml 02/05/24 15:29 Sodium Chloride 0.9% 10ml Flush Syringe IV 03/06/24 15:28 NEEDED PRN Maintain IV Site ORDERS Category Date Time Status CBC w/Auto Diff [Complete Blood Count Auto Diff] Stat Lab 02/05/24 15:28 Completed CMP [Comprehensive Metabolic Panel] Stat Lab 02/05/24 15:28 Completed ESR [Erythrocyte Sedimentation Rate] Stat Lab 02/05/24 15:28 Completed TSH [Thyroid Stimulating Hormone] Stat Lab 02/05/24 15:28 Completed UA [Urinalysis and Microscopic] Stat Lab 02/05/24 15:08 Completed Urine , HCG Qual. Stat Lab 02/05/24 15:08 Completed ECG Data Tracing #1: I reviewed this ECG and interpreted as documented below: Sinus tachycardia [address] or T wave changes concern for acute ischemia. LA 153, QRS 90, QTc 405. [place] normal Medical Decision Narrative: In summary patient is a 33-year-old female who presents to the emergency department for evaluation of a rash, bug bite and tachycardia. Patient is normotensive with a blood pressure 132/77 heart rate at 124 upon arrival, but afebrile. Physical exam shows a area that appears to be a puncture wound or bite in the right axilla without any fluctuance. There is localized edema and induration surrounding this. Patient has a body wide erythematous confluent flat nonpruritic rash involving all extremities and her front and back torso. Differential diagnosis includes anaphylaxis versus tickborne disease etc. Initial workup will be conducted with hematologic labs urinalysis urine . Initial interventions include crystalloid bolus Toradol Tylenol Benadryl Solu-Medrol. Initial workup reviewed by me shows that her hematologic workup is unremarkable and nonactionable. Upon repeat evaluation patient has had resolution of her tachycardia however the rash is still been mostly refractory.. Given this Dr. Velásquez and myself had an interactive discussion with the patient regarding her symptoms and plan. She has been given first dose of doxycycline with prescription sent to her pharmacy and first dose of corticosteroids. Patient is agreeable via patient directed discharge with close follow-up with her PCP return to the ER for worsening symptoms including shortness of breath pain fever difficulty breathing or swallowing. I independently interviewed and examined examined patient. I feel this is either related to insect bite with systemic symptoms, or overlapping viral syndrome. Rash appears very viral. Patient very well-appearing and is in absolutely no distress. Answering questions appropriately. I was consulted by the [facility], and we discussed the complexity of the problems being I independently interviewed and addressed. I approved the treatment and management plan for this patient?s care in the Emergency Department, thus performing a substantive portion of the medical decision making. Vladimir Velásquez MD Critical Care <AVILA Snowden - Last Filed: 02/05/24 17:41> Critical Care Time Critical Care Time: No
--- NOTE | 2024-02-05 15:22 | ECG_ITS ---
APPROVED REPORT Exam: Resting ECG HR:112 bpm ECG Measurements Heart Rate 112 AXES OH 153 P 67 QRSd 90 QRS 78 QT 339 T 25 QTc 405 Conclusion SINUS TACHYCARDIA Incomplete right bundle branch block Electronically signed by : BENJI ADKINS, 02/05/2024 22:43:05
[2024-02-05] MEDS: KETOROLAC 30MG/ML VIAL 15 MG IV (15:37)
[2024-02-05] MEDS: diphenhydrAMINE 50MG/ML VIAL 50 MG IV (15:37)
[2024-02-05 15:38] LABS: Urine Pregnancy, HCG Qual. Negative (Negative)
[2024-02-05] MEDS: METHYLPREDNISOLONE SOD SUCC 125MG VIAL 125 MG IV (15:38)
[2024-02-05] MEDS: ACETAMINOPHEN 1,000MG/100ML VIAL 1000 MG IV (15:38)
[2024-02-05 15:42] LABS: Basophils % 0.2 % (0.1-2.0); Eosinophils # 0.1 K/mm3 (0.0-0.4); Eosinophils % 1.9 % (0.1-12.0); Hematocrit 36.3 % (37.0-47.0); Hemoglobin 12.3 g/dL (12.2-16.2); Lymphocytes # 0.8 K/mm3 (0.7-4.5); Lymphocytes % 10.5 % (10-50); Mean Corpuscular HGB Conc 33.9 g/dL (31.8-35.4); Mean Corpuscular Hemoglobin 31.1 pg (27.0-31.2); Mean Corpuscular Volume 91.7 fl (81-99); Mean Platelet Volume 8.8 fl (7.4-10.4); Monocytes # 0.3 K/mm3 (0.1-1.0); Monocytes % 3.6 % (1.7-9.3); Neutrophils # 6.4 K/mm3 (1.8-7.8); Neutrophils % 83.8 % (37.0-80.0); Platelet Count 155 K/mm3 (142-424); Red Blood Count 3.96 M/mm3 (4.20-5.40); Red Cell Distribution Width 13.4 % (11.5-17.5); White Blood Count 7.6 K/mm3 (4.8-10.8)
[2024-02-05 15:55] LABS: Chloride 107 mmol/L (98-107); Potassium 3.5 mmoL/L (3.5-5.1); Sodium 140 mmol/L (136-145)
[2024-02-05 15:58] LABS: Alanine Aminotransferase 19 U/L (12-78); Albumin Level 4.3 g/dl (3.5-5.0); Albumin/Globulin Ratio 1.7 (1.1-1.8); Alkaline Phosphatase 62 U/L (38-126); Anion Gap 9.5 mEq/L (5-15); Aspartate Amino Transferase 22 U/L (14-36); Blood Urea Nitrogen 10 mg/dl (7-17); Calcium 9.1 mg/dl (8.4-10.2); Carbon Dioxide 27 mmol/L (22.0-30.0); Creatinine Clearance Estimated 84 mL/min (50-200); Estimated Glomerular Filt Rate 73 ml/min (>60); GFR (African American) 88 ML/MIN (>60); Globulin 2.6 g/dL (1.3-3.2); Glucose 87 mg/dl (74-100); Total Protein,Serum 6.9 g/dl (6.3-8.2)
[2024-02-05] MEDS: DOXYCYCLINE HYCLATE 200 MG in 0.9 % SODIUM CHLORIDE 250 ML 166.667 MG IV (16:07)
[2024-02-05 16:10] LABS: Erythrocyte Sedimentation Rate 16 mm/hr (0-20)
[2024-02-05 16:30] VITALS: BP 106/62; PULSE 95; O2SAT 100
[2024-02-05] MEDS: FAMOTIDINE 20MG TABLET 40 MG PO (16:50)
[2024-02-05 17:00] VITALS: BP 112/70; PULSE 98; O2SAT 100
[2024-02-05 17:02] LABS: Thyroid Stimulating Hormone 1.11 uIU/mL (0.465-4.68)
[2024-02-05 17:31] VITALS: BP 120/69; PULSE 98; O2SAT 100
[2024-02-05 17:54] LABS: Appearance,Urine CLEAR (Clear); Bilirubin,Urine Negative (Negative); Blood, Urine Negative (Negative); Color,Urine ORANGE (Yellow); Glucose,Urine (UA) Negative (Negative); Ketones,Urine Negative (Negative); Leukocyte Esterase,Urine Negative (Negative); Microscopic, Urine URINE MICROSCOPIC (MICROSCOPIC); Nitrate,Urine Negative (Negative); Protein,Urine Negative (Negative); Specific Gravity, Urine 1.025 (1.005-1.030)
[2024-02-05 18:10] LABS: Bacteria,Urine Trace /lpf; RBC,Urine Occasional #/hpf (0-3)
[2024-02-05 18:16] VITALS: BP 101/65; PULSE 65; RESP 15; TEMP 36.6
== END 2024-02-05 18:17 | disposition home or self-care (01) ==
PROVIDERS: Physician Assistant; Emergency Provider Emergency Medicine; PCP Family Medicine
DX: R21 Rash and other nonspecific skin eruption (principal); R00.0 Tachycardia, unspecified; F17.210 Nicotine dependence, cigarettes, uncomplicated; W57.XXXA Bitten or stung by nonvenomous insect and other nonvenomous arthropods, initial encounter
CPT/HCPCS: 80053; 81001; 81025; 84443; 85025; 85651; 93005; 96374; 96375; 99284; J0131; J1885; J2919

== ENCOUNTER 2024-07-30 10:13 | Emergency (ER) | payer SELFPAY ==
[2024-07-30 10:15] VITALS: BP 126/70; PULSE 61; RESP 20; TEMP 37.1; O2SAT 95; BMI 19.5
--- NOTE | 2024-07-30 10:18 | PC.NURSE ---
DR ADKINS AT BEDSIDE
--- NOTE | 2024-07-30 10:21 | ECG_ITS ---
APPROVED REPORT Exam: Resting ECG HR:100 bpm ECG Measurements Heart Rate 100 AXES ME 142 P 62 QRSd 85 QRS 53 QT 335 T 50 QTc 392 Conclusion SINUS TACHYCARDIA POSSIBLE RIGHT VENTRICULAR CONDUCTION DELAY Electronically signed by : BENJI ADKINS, 08/01/2024 15:13:00
--- NOTE | 2024-07-30 10:28 | ED_ITS ---
Discharge Plan Disposition Patient Disposition: Home, Self-Care Chief Complaint: PAIN Prescriptions Prescriptions: No Action doxycycline hyclate 100 mg capsule 100 mg PO BID 7 Days Qty: 14 0RF prednisone 50 mg tablet 50 mg PO DAILY 5 Days Qty: 5 0RF Referrals Follow up/Referrals: Provider,Referral, MD [Primary Care Provider] - See instructions Activity Restrictions/Add. Instructions Additional Instructions/Restrictions: Call your family doctor to establish care for this visit to the emergency department and schedule follow-up within 48 hours to ensure improvement. If you have any worsening of your condition or any other concerning signs or symptoms, return to the emergency department or your primary care doctor for further evaluation. Take Tylenol 1000 mg every 6 hours (4 times daily) and ibuprofen 400 mg every 6 hours (4 times daily) as needed with food and water to prevent GI upset and kidney damage. Clinical Impressions Clinical Impression: COVID-19 Print Language Print Language: Telugu Discharge ED Provider: Vladimir Velásquez General Adult HPI General Chief complaint: PAIN Stated complaint: Chest Pain Time Seen by Provider: 07/30/24 10:16 Mode of Arrival: Ambulatory Source of Information: Patient Limitations: No Limitations Description of Symptoms (Recalled from ER Triage Doc. by RN): pt to ed via ems c/o sharp intermittent pain in bilateral legs. pt reports waking up with this pain. pt also reports a fever this morning. pt denies any accident or injury. pt denies numbness/tingling. History of Present Illness HPI narrative: Please note that above description of symptoms, in this electronic medical record under categorization of recalled from ER triage doctor by RN are reflective of an initial nursing assessment, however, is not reflective of my full history and physical exam that was personally taken and clarified. Consequentially, this preceding description of symptoms, which may include the patient's categorized chief complaint in the EMR, do not reflect my personal clinical impression, and the ultimate description of history of present illness and patient stated complaints should be deferred to this section of the note. Unless stated otherwise or congruent with this section of the note, additional signs, symptoms, or incongruence should be interpreted as inaccurate with my clinical impression. Related Data Previous Rx's ?Medication ?Instructions ?Recorded doxycycline hyclate 100 mg capsule 100 mg PO BID 7 days #14 caps 02/05/24 prednisone 50 mg tablet 50 mg PO DAILY 5 days #5 tabs 02/05/24 Allergies Allergy/AdvReac Type Severity Reaction Status Date / Time hydromorphone (From Dilaudid) Allergy Verified 07/05/22 11:15 [facility] Disclaimer: The information contained in this section may have been updated after the patient was seen, as this information can be updated by other users. Medical History (Updated 07/30/24 @ 13:30 by Vladimir Velásquez MD) Depression Anxiety Routine physical examination Physically able to work Asthma Postoperative anemia due to acute blood loss Chronic pelvic pain in female Dysmenorrhea Endometriosis determined by laparoscopy Surgical History History of tubal ligation History of hysterectomy Social History (Updated 04/03/22 @ 14:32 by Meagan Ochoa) Smoking Status: Never smoker second hand exposure: No alcohol intake: never substance use type: denies use current occupational status: employed Travel in the last 8 weeks: None household members: children housing: house 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 current occupational exposures/hazards: No caffeine: Yes Have you lived/traveled outside US in past 30 days?: No Contact w/someone who lives/traveled outside US past 30 days?: No Exposure to someone with infectious disease in past 14 days?: No Do you have a fever (greater than 100.4 F or 38 C)?: No Have you tested positive for COVID-19: No Exposed to someone with COVID-19 in past 14 days?: No Do you have a sore throat?: No Do you have a cough?: No Do you have any weakness?: No Do you have any diarrhea?: No Are you experiencing any unusual bleeding?: No Do you have any muscle aches/pain?: Yes Do you have any abdominal pain?: No Are you experiencing loss of taste or smell?: No Other Medical History Have you received the Flu Vaccine for this season: No Have you received the Pneumonia Vaccine: No ROS Obtained: Yes All systems reviewed & no additional complaints except as documented Physical Exam General General appearance: alert and in no apparent distress Head Head exam: atraumatic and normocephalic Eye Eye exam: Present normal appearance, PERRL and EOMI Neck Neck exam: Present normal inspection, full ROM and trachea midline Respiratory Respiratory exam: Present normal lung sounds bilaterally; Absent respiratory distress, wheezes, stridor, accessory muscle use or prolonged expiratory phase Cardiovascular Cardiovascular exam: Present regular rate, normal rhythm and other (Pulses equal symmetric in upper and lower extremities) Abdominal Exam Abdominal exam: Present soft; Absent distention, tenderness, guarding, rebound, rigidity or pulsatile mass Extremities Exam Extremities exam: Absent edema Neurological Exam Neurological exam: Present alert, oriented X3 and CN II-XII intact; Absent motor sensory deficit Skin Skin exam: Present warm and dry; Absent diaphoresis or erythema Medical Decision Making Medical Records Medical records reviewed: Yes I reviewed the patient's medical records. Screening: Per USPSTF and CDC recommendations, given the prevalence of disease in our region, it is our hospital?s policy to screen for HIV and viral Hepatitis for all patients aged 18 and over and those with ongoing risk factors. Jose Inquiry Pt receiving controlled substance: No Jose was queried for this patient: No Vital Signs: 07/30/24 10:15 Temperature 98.7 F Temperature Source Oral Pulse Rate [Left Radial] 61 Respiratory Rate 20 Blood Pressure [Right Arm] 126/70 Blood Pressure Mean [Right Arm] 88 02 Sat by Pulse Oximetry 95 Lab Data Lab Results 07/30/24 10:29: WBC 5.0, RBC 4.02 L, Hgb 11.9 L, Hct 35.3 L, MCV 87.8, MCH 29.6, MCHC 33.7, RDW 12.1, Plt Count 168, MPV 10.7 H, Neut % (Auto) 89.4 H, Lymph % (Auto) 5.4 L, Dare % (Auto) 3.8, Eos % (Auto) 0.4, Baso % (Auto) 0.8, Neut # (Auto) 4.5, Lymph # (Auto) 0.3 L, Dare # (Auto) 0.2, Eos # (Auto) 0.0, Baso # (Auto) 0.0, Total Counted 100, Neutrophils % (Manual) 90 H, Lymphocytes % (Manual) 8 L, Monocytes % (Manual) 1 L, Eosinophils % (Manual) 1, Platelet Estimate Normal, RBC Morphology Normal, Sodium 136, Potassium 3.7, Chloride 107, Carbon Dioxide 24, Anion Gap 8.7, BUN 5 L, Creatinine 0.80, Estimated Creat Clear 90, Estimated GFR 83, Est GFR ( Amer) 100, Glucose 80, Calcium 9.5, Total Bilirubin 0.4, AST 28, ALT 29, Alkaline Phosphatase 51, Total Protein 6.9, Albumin 4.6, Globulin 2.3, Albumin/Globulin Ratio 2.0 H, Lipase 178 07/30/24 10:45: SARS-CoV-2 (PCR) Detected A, Influenza A Untype (PCR) Not detected, Influenza Type B (PCR) Not detected 07/30/24 10:29 07/30/24 10:29 Orders (Tests/Meds): ED MEDICATIONS Discontinued Medications Generic Name Dose Route Start Last Admin Trade Name [place] PRN Reason Stop Dose Admin Acetaminophen 1,000 mg 07/30/24 10:23 07/30/24 10:37 Acetaminophen 1,000mg/100ml Vial IV 07/30/24 10:24 1,000 mg ONCE ONE Administration Sodium Chloride 1,000 mls @ 999 mls/hr 07/30/24 10:23 07/30/24 10:37 Sod Chlor 0.9% 1000ml Bag IV 07/30/24 11:23 999 mls/hr .Q1H1M ONE Administration Ketorolac Tromethamine 15 mg 07/30/24 10:23 07/30/24 10:38 Ketorolac 30mg/Ml Vial IV 07/30/24 10:24 15 mg ONCE ONE Administration ORDERS Category Date Time Status CBC w/Auto Diff [Complete Blood Count Auto Diff] Stat Lab 07/30/24 10:29 Completed CMP [Comprehensive Metabolic Panel] Stat Lab 07/30/24 10:29 Completed HIV (1&2) Antibody Rapid Stat Lab 07/30/24 10:29 Received Hep C Ab with Reflex to RNA Stat Lab 07/30/24 10:29 Received Lipase Stat Lab 07/30/24 10:29 Completed Rapid PCR Covid and Flu A/B Stat Lab 07/30/24 10:45 Completed Medical Decision Narrative: 34-year-old female no relevant medical history, surgical history relevant for hysterectomy presenting with diarrhea, body aches, fever. All the symptoms started yesterday in the late evening, 07/29. Persisted into today. No vomiting, but she does feel queasy, nonbloody diarrhea. 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 No urinary symptoms. No other relevant history. States that her biggest complaint is the body aches and feels like she is being stabbed by knives in the bone, not in the muscle. History was obtained via conversation with patient. On arrival, patient hemodynamically stable, alert, oriented x4, appropriate, GCS 15, moving all extremities spontaneously, pupils equal and reactive to light. Full physical exam performed and significant for very well appearing female who is tearful, but clinically well-appearing. She is in no acute distress. She does have tenderness of her extremities. Abdomen soft, does not appear to be tender on my exam. Patient nontachycardic, nontachypneic. Differential includes acute viral syndrome, gastritis, enteritis, myalgias, etc. Independent interpretation of EKG shows sinus tachycardia 100 bpm, this is while patient is being phlebotomized. IA 142, QRS 85, QTc 392. Normal axis. No acute ischemic change. Patient was given Toradol, acetaminophen, fluids for symptomatic management and correction of underlying abnormalities. Workup independently interpreted and significant for nonactionable hematologic labs. COVID-positive. On reevaluation, patient states she is feeling much better, but still having mild bodyaches. Given patient presentation, workup, history, this most likely represents acute viral syndrome with COVID. Because patient at baseline without signs or symptoms of clinical decompensation, deemed appropriate for discharge. Results were relayed to patient who voiced understanding and were agreeable to outpatient management and follow up. I discussed my clinical impression with patient and answered all questions. At this time, the evidence for any other entities in the differential is insufficient to warrant any further testing or ED observation. This was explained as well. Advisory was given that persistent or worsening symptoms require further evaluation. I confirmed the understanding of this discussion. Cigar Wrapper disclaimer Much of this encounter note is an electronic podiatric foot and ankle specialist spoken language to printed text. Electronic podiatric foot and ankle specialist of the spoken language may permit errors. Although I have reviewed the note, some errors may still exist. Critical Care Critical Care Time Critical Care Time: No
[2024-07-30] MEDS: 0.9 % SODIUM CHLORIDE 1000ML 1,000 ML 999 ML IV (10:37)
[2024-07-30] MEDS: ACETAMINOPHEN 1,000MG/100ML VIAL 1000 MG IV (10:37)
[2024-07-30] MEDS: KETOROLAC 30MG/ML VIAL 15 MG IV (10:38)
[2024-07-30 10:47] LABS: Hematocrit 35.3 % (37.0-47.0); Hemoglobin 11.9 g/dL (12.2-16.2); Mean Corpuscular Volume 87.8 fl (81-99); Red Blood Count 4.02 M/mm3 (4.20-5.40)
[2024-07-30 10:48] LABS: Basophils % 0.8 % (0.1-2.0); Eosinophils % 0.4 % (0.1-12.0); Lymphocytes % 5.4 % (10-50); Mean Corpuscular HGB Conc 33.7 g/dL (31.8-35.4); Mean Corpuscular Hemoglobin 29.6 pg (27.0-31.2); Mean Platelet Volume 10.7 fl (7.4-10.4); Monocytes % 3.8 % (1.7-9.3); Neutrophils % 89.4 % (37.0-80.0); Platelet Count 168 K/mm3 (142-424); Red Cell Distribution Width 12.1 % (11.5-17.5)
[2024-07-30 10:49] LABS: Lymphocytes # 0.3 K/mm3 (0.7-4.5); Monocytes # 0.2 K/mm3 (0.1-1.0); Neutrophils # 4.5 K/mm3 (1.8-7.8)
[2024-07-30 10:50] LABS: MANUAL DIFFERENTIAL MANUAL DIFFERENTIAL (MANUAL DIFF)
[2024-07-30 10:53] LABS: Albumin Level 4.6 g/dl (3.5-5.0); Chloride 107 mmol/L (98-107); Potassium 3.7 mmoL/L (3.5-5.1); Sodium 136 mmol/L (136-145)
[2024-07-30 10:54] LABS: Influenza A, PCR Not Detected (NotDetected); Influenza B, PCR Not Detected (NotDetected)
[2024-07-30 10:56] LABS: Alanine Aminotransferase 29 U/L (12-78); Alkaline Phosphatase 51 U/L (38-126); Aspartate Amino Transferase 28 U/L (14-36); Bilirubin,Total 0.4 mg/dl (0.2-1.3); Blood Urea Nitrogen 5 mg/dl (7-17); Creatinine Clearance Estimated 90 mL/min (50-200); Estimated Glomerular Filt Rate 83 ml/min (>60); GFR (African American) 100 ML/MIN (>60); Globulin 2.3 g/dL (1.3-3.2); Lipase 178 U/L (23-300); Total Protein,Serum 6.9 g/dl (6.3-8.2)
[2024-07-30 10:57] LABS: Calcium 9.5 mg/dl (8.4-10.2); Glucose 80 mg/dl (74-100)
--- NOTE | 2024-07-30 11:04 | PC.NURSE ---
Pt. laying in bed at this time. No needs. Call light in reach
[2024-07-30 11:32] LABS: Eosinophils % 1 % (0-3); Lymphocytes % 8 % (10-50); Monocytes % 1 % (2-9); Neutrophils % 90 % (42-76); Platelet Estimate Normal; RBC Morphology Normal; Total Cells Counted 100
[2024-07-30 11:34] LABS: Anion Gap 8.7 mEq/L (5-15); Carbon Dioxide 24 mmol/L (22.0-30.0)
--- NOTE | 2024-07-30 12:32 | PC.NURSE ---
rounded on pt at this time. pt sleeping st this time
--- NOTE | 2024-07-30 13:16 | PC.NURSE ---
DR ADKINS AT BEDSIDE TO UPDATE PT
[2024-07-30 13:20] LABS: Coronavirus 19, PCR Detected (NotDetected)
[2024-07-30 13:41] VITALS: BP 113/75; PULSE 102; RESP 18; TEMP 36.8; O2SAT 98
[2024-07-30 15:15] LABS: HIV Combo NEGATIVE (Negative)
[2024-07-31 07:08] LABS: HCV Ab Non Reactive (Non Reactive)
== END 2024-07-30 13:43 | disposition home or self-care (01) ==
PROVIDERS: Emergency Provider Emergency Medicine
DX: U07.1 COVID-19 (principal); R50.9 Fever, unspecified; M79.10 Myalgia, unspecified site; R19.7 Diarrhea, unspecified
CPT/HCPCS: 80053; 83690; 85007; 85025; 85027; 86803; 87389; 87636; 93005; 96361; 96374; 96375; 99284; J0131; J1885; J7030

== ENCOUNTER 2024-08-23 11:48 | Emergency (ER) | payer BC, SELFPAY ==
[2024-08-23 12:00] VITALS: BP 102/68; PULSE 87; RESP 19; TEMP 37.2; O2SAT 100; BMI 23.1
--- NOTE | 2024-08-23 12:10 | ED_ITS ---
Discharge Plan Disposition Patient Disposition: Home, Self-Care Condition: Good Prescriptions Prescriptions: No Action trazodone 50 mg tablet 25 mg PO DAILY Patient Comments: TAKE 1/2 TABLET BY MOUTH ONCE NIGHTLY. hydroxyzine HCl 25 mg tablet 25 mg PO DAILY Patient Comments: TAKE 1/2 TO 1 TABLET BY MOUTH ONCE DAILY NEEDED FOR ANXIETY. propranolol 20 mg tablet 10 mg PO BID Patient Comments: TAKE 1/2 TABLET BY MOUTH TWICE DAILY NEEDED. bupropion HCl 200 mg tablet sustained-release 12 hr 200 mg PO BID Patient Comments: TAKE 1 TABLET BY MOUTH 2 TIMES DAILY. Referrals Follow up/Referrals: Sandy Peralta MD [Primary Care Provider] - See instructions Activity Restrictions/Add. Instructions Additional Instructions/Restrictions: Take Tylenol/Ibuprofen as needed for pain/fever. Gargle with salt water/use throat lozenges for sore throat. Increase fluids and rest. Clinical Impressions Clinical Impression: Strep throat Instructions Patient Instructions: DI for Strep Throat Print Language Print Language: [place] Citizen Discharge ED Provider: Savana Champagne [facility] General Stated complaint: sore throat, fever Mode of Arrival: Ambulatory Source of Information: Patient Limitations: No Limitations Time Seen by Provider: 08/23/24 12:09 Description of Symptoms (Recalled from Triage Doc. 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 C/O SORE THROAT AND FEVER SINCE SATURDAY HEENT Symptoms (Recalled from RN notes): Yes Resp Symptoms (Recalled from RN notes): No Skin Symptoms (Recalled from RN notes): No MS Symptoms (Recalled from RN notes): No Functional Status (Recalled from RN notes): WNL History of Present Illness Provider Complaint: Pt reports that she started having a sore throat and fever on Saturday. Related Data Home Medications ?Medication ?Instructions ?Recorded ?Confirmed bupropion HCl 200 mg tablet,12 hr 200 mg PO BID 08/23/24 08/23/24 sustained-release hydroxyzine HCl 25 mg tablet 25 mg PO DAILY 08/23/24 08/23/24 propranolol 20 mg tablet 10 mg PO BID 08/23/24 08/23/24 trazodone 50 mg tablet 25 mg PO DAILY 08/23/24 08/23/24 Allergies Allergy/AdvReac Type Severity Reaction Status Date / Time hydromorphone (From Dilaudid) Allergy Verified 07/05/22 11:15 Worker's Comp Is this a Worker's Comp case?: No [facility] Disclaimer: The information contained in this section may have been updated after the patient was seen, as this information can be updated by other users. Medical History (Updated 08/23/24 @ 12:20 by Savana Champagne APRN) Depression Anxiety Routine physical examination Physically able to work Asthma Postoperative anemia due to acute blood loss Chronic pelvic pain in female Dysmenorrhea Endometriosis determined by laparoscopy Surgical History History of tubal ligation History of hysterectomy Social History (Updated 04/03/22 @ 14:32 by Meagan Ochoa) Smoking Status: Never smoker second hand exposure: No alcohol intake: never substance use type: denies use current occupational status: employed Travel in the last 8 weeks: None household members: children housing: house 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 current occupational exposures/hazards: No caffeine: Yes Have you lived/traveled outside US in past 30 days?: No Contact w/someone who lives/traveled outside US past 30 days?: No Exposure to someone with infectious disease in past 14 days?: No Do you have a fever (greater than 100.4 F or 38 C)?: Yes Have you tested positive for COVID-19: No Exposed to someone with COVID-19 in past 14 days?: No Do you have a sore throat?: Yes Do you have a cough?: No Do you have any weakness?: No Do you have any diarrhea?: No Are you experiencing any unusual bleeding?: No Do you have any muscle aches/pain?: No Do you have any abdominal pain?: No Are you experiencing loss of taste or smell?: No ROS Obtained: Yes All systems reviewed & no additional complaints except as documented Constitutional Constitutional: Reports system reviewed and no additional complaints, except as documented Eyes Eyes: Reports system reviewed and no additional complaints, except as documented ENT Ears, Nose, Mouth, and Throat: Reports system reviewed and no additional complaints, except as documented, Reports odynophagia and Reports sore throat Cardiovascular Cardiovascular: Reports system reviewed and no additional complaints, except as documented Respiratory Respiratory: Reports system reviewed and no additional complaints, except as documented Gastrointestinal Gastrointestingal: Reports system reviewed and no additional complaints, except as documented and odynophagia Genitourinary Female Genitourinary: Reports system reviewed and no additional complaints, except as documented Musculoskeletal Musculoskeletal: Reports system reviewed and no additional complaints, except as documented Integumentary/Breasts Skin/Breast: Reports system reviewed and no additional complaints, except as documented Neurologic Neurologic: Reports system reviewed and no additional complaints, except as documented Endocrine Endocrine: Reports system reviewed and no additional complaints, except as documented Hematologic/Lymphatic Henatologic/Lymphatic: Reports system reviewed and no additional complaints, except as documented Allergic/Immunologic Allergic/Immunologic: Reports system reviewed and no additional complaints, except as documented Physical Exam General General appearance: alert Comment: ill appearing Head Head exam: atraumatic and normocephalic Eye Eye exam: Present normal appearance ENT ENT exam: Present mucous membranes moist Expanded ENT Exam External ear exam: Present normal external inspection Nose exam: Absent sinus tenderness Nasal speculum exam: Bilateral: normal Mouth exam: Present normal external inspection Teeth exam: Present normal inspection Throat exam: Present tonsillar erythema, tonsillomegaly and tonsillar exudate Neck Neck exam: Present tenderness and lymphadenopathy Chest Chest inspection: Present normal inspection and symmetric chest wall rise Respiratory Respiratory exam: Present normal lung sounds bilaterally Cardiovascular Cardiovascular exam: Present regular rate, normal rhythm and normal heart sounds Abdominal Exam Abdominal exam: Present soft Extremities Exam Extremities exam: Present normal inspection Back Exam Back exam: Present normal inspection Neurological Exam Neurological exam: Present alert and oriented X3 Psychiatric Psychiatric exam: Present normal affect and normal mood Skin Skin exam: Present warm, dry and intact Lymphatic Lymphatic Findings: no adenopathy Medical Decision Making Medical Records Screening: Per USPSTF and CDC recommendations, given the prevalence of disease in our region, it is our hospital?s policy to screen for HIV and viral Hepatitis for all patients aged 18 and over and those with ongoing risk factors. Jose Inquiry Pt receiving controlled substance: No Jose was queried for this patient: No Vital Signs: 08/23/24 12:00 Temperature 99.0 F Temperature Source Oral Pulse Rate [Left Brachial] 87 Respiratory Rate 19 Blood Pressure [Left Arm] 102/68 L Blood Pressure Mean [Left Arm] 79 Blood Pressure Source [Left Arm] Automatic Cuff Blood Pressure Position [Left Arm] Sitting 02 Sat by Pulse Oximetry 100 Oxygen Delivery Method Room Air Lab Data Lab results reviewed: Yes I reviewed the patient's lab results.
[2024-08-23 12:15] LABS: UTC Strep Screen (Rapid) Positive (Negative)
[2024-08-23] MEDS: PENICILLIN G BENZATHINE 1,200,000 UNITS/2ML SYRINGE 1200000 UNIT IM (12:19)
[2024-08-23 12:20] VITALS: BP 102/68; PULSE 87; RESP 19; TEMP 37.2; O2SAT 100
== END 2024-08-23 12:28 | disposition home or self-care (01) ==
PROVIDERS: Emergency Provider Nurse Practitioner Family; PCP Family Medicine
DX: J02.0 Streptococcal pharyngitis (principal); R50.9 Fever, unspecified; R13.10 Dysphagia, unspecified
CPT/HCPCS: 87880; 99212; G0381; J0561

== ENCOUNTER 2024-08-24 06:46 | Day surgery (SDC) | payer BC, SELFPAY ==
[2024-08-24] VITALS (31 sets, daily range): BP systolic 100–144; BP diastolic 47–80; PULSE 57–97; RESP 15–18; TEMP 36.6–43; O2SAT 88–100; BMI 19.8
--- NOTE | 2024-08-24 07:15 | PC.NURSE ---
Dr. German at bedside
--- NOTE | 2024-08-24 07:17 | CT_ITS ---
FINAL REPORT TECHNIQUE: Axial images through the abdomen and pelvis were performed without contrast. This study was performed with techniques to keep radiation doses as low as reasonably achievable, (ALARA). Individualized dose reduction techniques using automated exposure control or adjustment of mA and/or kV according to the patient's size were employed. CLINICAL HISTORY: L flank pain COMPARISON: None FINDINGS: Abdomen: The lung bases are clear. The liver parenchyma is homogeneous. The gallbladder is present. The spleen, pancreas, adrenals and kidneys are unremarkable. Pelvis: The urinary bladder is unremarkable. The appendix is normal in appearance. There is a small to moderate free fluid in the pelvis, that may be physiologic. There is a multicystic left adnexal structure which measures up to 3.6 cm in diameter, probably related to ovarian cysts. IMPRESSION: Multicystic left adnexal structure which measures up to 3.6 cm in diameter, probably related to ovarian cysts. No evidence of renal stone or obstruction. Reviewed, Interpreted and Dictated by Niranjan Schaefer MD Transcribed by Kari Oden Authenticated and [facility]
--- NOTE | 2024-08-24 07:19 | HMH.EDGENADL ---
Discharge Plan Disposition Patient Disposition: Admitted Condition: Good Clinical Impressions Clinical Impression: Ovarian cyst, Acute left lower quadrant pain Discharge ED Provider: Alexus German General Adult HPI General Chief complaint: Abdominal Pain Stated complaint: Flank Pain Time Seen by Provider: 08/24/24 07:05 Mode of Arrival: EMS Source of Information: Patient and EMS Limitations: No Limitations Description of Symptoms (Recalled from ER Triage Doc. by RN): Patient reports Left flank pain starting last night, but worsening around 4am. Patient denies any significant medical history or allergies. History of Present Illness HPI narrative: This patient is a 34-year-old female who has a history of depression/anxiety, endometriosis, IBS with prior history of hysterectomy presented to the emergency department for evaluation with concern for left flank pain radiating around to her left lower quadrant. She notes that this started last night around 8:00 PM was a mild pain. She states that it folic someone had punched her in her kidney. Overnight, the pain became much worse. She notes that it is intermittently severe. She arrives by EMS who administered fentanyl prior to arrival. She notes that she was diagnosed with strep yesterday and was given a penicillin shot and is doing better with regards to this. She has had fevers, but she attributed that to the strep. Sore throat symptoms started on Saturday. No dysuria, urinary frequency, urinary urgency, or changes in color of urine. No prior history of kidney stones. Related Data Home Medications ?Medication ?Instructions ?Recorded ?Confirmed bupropion HCl 200 mg tablet,12 hr 200 mg PO BID 08/23/24 08/23/24 sustained-release hydroxyzine HCl 25 mg tablet 25 mg PO DAILY 08/23/24 08/23/24 propranolol 20 mg tablet 10 mg PO BID 08/23/24 08/23/24 trazodone 50 mg tablet 25 mg PO DAILY 08/23/24 08/23/24 Previous Rx's ?Medication ?Instructions ?Recorded ibuprofen 400 mg tablet 400 mg PO Q4HP PRN Moderate Pain 08/24/24 #40 tabs oxycodone-acetaminophen 5 mg-325 1 tab PO Q6H PRN pain #14 tabs 08/24/24 mg tablet Allergies Allergy/AdvReac Type Severity Reaction Status Date / Time hydromorphone (From Dilaudid) Allergy Verified 07/05/22 11:15 [facility] Disclaimer: The information contained in this section may have been updated after the patient was seen, as this information can be updated by other users. 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 current occupational exposures/hazards: No caffeine: Yes Other Medical History Have you received the Flu Vaccine for this season: No Have you received the Pneumonia Vaccine: No ROS Obtained: Yes All systems reviewed & no additional complaints except as documented Physical Exam General General appearance: alert and in no apparent distress Head Head exam: atraumatic and normocephalic Eye Eye exam: Present normal appearance, PERRL and EOMI ENT ENT exam: Present normal exam, normal oropharynx, mucous membranes moist and normal external ear exam Neck Neck exam: Present normal inspection, full ROM and trachea midline; Absent tenderness Chest Chest inspection: Present normal inspection and symmetric chest wall rise; Absent tenderness Respiratory Respiratory exam: Present normal lung sounds bilaterally; Absent respiratory distress, wheezes, stridor or accessory muscle use Cardiovascular Cardiovascular exam: Present regular rate and normal rhythm Abdominal Exam Abdominal exam: Present soft and tenderness (L sided); Absent distention, guarding, rebound or rigidity Extremities Exam Extremities exam: Present normal inspection, full ROM and normal capillary refill; Absent tenderness or edema Back Exam Back exam: Present normal inspection and full ROM; Absent tenderness Neurological Exam Neurological exam: Present alert, oriented X3, CN II-XII intact and normal gait; Absent motor sensory deficit Psychiatric Psychiatric exam: Present normal affect and normal mood Skin Skin exam: Present warm and dry Medical Decision Making Medical Records Medical records reviewed: Yes I reviewed the patient's medical records. Screening: Per USPSTF and CDC recommendations, given the prevalence of disease in our region, it is our hospital?s policy to screen for HIV and viral Hepatitis for all patients aged 18 and over and those with ongoing risk factors. Jose Inquiry Pt receiving controlled substance: No Vital Signs: 08/24/24 06:46 08/24/24 07:32 08/24/24 08:00 Temperature 97.9 F Temperature Source Oral Pulse Rate 86 73 Pulse Rate [Right Radial] 90 Respiratory Rate 16 Blood Pressure 125/80 110/66 Blood Pressure [Right Arm] 115/63 Blood Pressure Mean [Right Arm] 80 Blood Pressure Source Blood Pressure Source [Right Arm] Automatic Cuff Blood Pressure Position [Right Arm] Supine 02 Sat by Pulse Oximetry 100 99 100 Oxygen Delivery Method Room Air Room Air Room Air 08/24/24 08:15 08/24/24 08:30 08/24/24 09:30 Temperature Temperature Source Pulse Rate 58 L 62 83 Pulse Rate [Right Radial] Respiratory Rate Blood Pressure 109/61 L 113/69 Blood Pressure [Right Arm] Blood Pressure Mean [Right Arm] Blood Pressure Source Blood Pressure Source [Right Arm] Blood Pressure Position [Right Arm] 02 Sat by Pulse Oximetry 100 98 100 Oxygen Delivery Method Room Air Room Air 08/24/24 10:00 08/24/24 10:30 08/24/24 10:45 Temperature 98.9 F Temperature Source Oral Pulse Rate 69 72 72 Pulse Rate [Right Radial] Respiratory Rate 18 Blood Pressure 104/60 L 100/72 L 100/72 L Blood Pressure [Right Arm] Blood Pressure Mean [Right Arm] Blood Pressure Source Automatic Cuff Blood Pressure Source [Right Arm] Blood Pressure Position [Right Arm] 02 Sat by Pulse Oximetry 99 98 Oxygen Delivery Method Room Air Room Air Room Air Lab Data Lab results reviewed: Yes I reviewed the patient's lab results. Lab Results 08/24/24 06:54: WBC 9.1, RBC 3.66 L, Hgb 10.8 L, Hct 32.6 L, MCV 89.1, MCH 29.5, MCHC 33.1, RDW 12.9, Plt Count 154, MPV 10.9 H, Neut % (Auto) 82.6 H, Lymph % (Auto) 10.7, [place] % (Auto) 5.0, Eos % (Auto) 0.9, Baso % (Auto) 0.4, Neut # (Auto) 7.5, Lymph # (Auto) 1.0, [place] # (Auto) 0.5, Eos # (Auto) 0.1, Baso # (Auto) 0.0, Sodium 140, Potassium 3.6, Chloride 107, Carbon Dioxide 26, Anion Gap 10.6, BUN 11, Creatinine 0.60, Estimated Creat Clear 124, Estimated GFR 115, Est GFR ( Amer) 139, Glucose 102 H, Calcium 8.7, Total Bilirubin 0.2, AST 30, ALT 17, Alkaline Phosphatase 58, Total Protein 6.3, Albumin 3.8, Globulin 2.5, Albumin/Globulin Ratio 1.5, Lipase 79 08/24/24 08:50: Urine Color Yellow, Urine Appearance Sl cloudy, Urine pH 6.0, Ur Specific [place] >= 1.030, Urine Protein Trace, Urine Glucose (UA) Negative, Urine Ketones Negative, Urine Blood Negative, Urine Nitrate Negative, Urine Bilirubin Negative, Urine Urobilinogen 0.2, Ur Leukocyte Esterase Negative, Urine RBC None, Urine WBC Occasional, Ur Squamous Epith Cells 3-5, Urine Bacteria Trace 08/24/24 06:54 08/24/24 06:54 Orders (Tests/Meds): ED MEDICATIONS Discontinued Medications Generic Name Dose Route Start Last Admin Trade Name Freq PRN Reason Stop Dose Admin Acetaminophen 1,000 mg 08/24/24 07:17 08/24/24 14:37 Acetaminophen 1,000mg/100ml Vial IV 08/24/24 07:18 1,000 mg ONCE ONE Administration Acetaminophen 1,000 mg 08/24/24 15:00 Acetaminophen 1,000mg/100ml Vial IV 08/24/24 15:01 ONCE ONE Lactated Ringer's 1,000 mls @ 999 mls/hr 08/24/24 07:17 08/24/24 07:32 Lactated Ringer's 1000 Ml Bag IV 08/24/24 08:17 999 mls/hr .Q1H1M ONE Administration Cefazolin Sodium 2 gm/ Sodium 100 mls @ 200 mls/hr 08/24/24 11:30 08/24/24 11:30 Chloride IV 08/24/24 11:59 200 mls/hr PREOP ONE Administration Ketorolac Tromethamine 15 mg 08/24/24 07:17 08/24/24 07:33 Ketorolac 30mg/Ml Vial IV 08/24/24 07:18 15 mg ONCE ONE Administration Meperidine HCl 25 mg 08/24/24 12:32 Meperidine 25mg/Ml 1ml Syringe IV 08/24/24 14:32 Q5MINP PRN Shivering Morphine Sulfate 4 mg 08/24/24 07:17 08/24/24 07:33 Morphine 4mg/Ml Syringe IV 08/24/24 07:18 4 mg ONCE ONE Administration Morphine Sulfate 4 mg 08/24/24 09:27 08/24/24 09:41 Morphine 4mg/Ml Syringe IV 08/24/24 09:28 4 mg ONCE ONE Administration Morphine Sulfate 2 mg 08/24/24 12:32 Morphine 2mg/Ml Syringe IV 08/24/24 14:32 Q5MINP PRN Moderate Pain (4-6) Ondansetron HCl 4 mg 08/24/24 07:17 08/24/24 07:33 Ondansetron 4mg/2ml Vial IV 08/24/24 07:18 4 mg ONCE ONE Administration Ondansetron HCl 4 mg 08/24/24 12:32 08/24/24 14:37 Ondansetron 4mg/2ml Vial IV 08/24/24 14:32 4 mg Q6HP PRN Administration Nausea Oxycodone/Acetaminophen 1 each 08/24/24 14:30 08/24/24 14:36 Oxycodone 10mg W/Apap 325mg Tablet PO 08/24/24 14:31 1 each ONCE ONE Administration Promethazine HCl 6.25 mg 08/24/24 12:32 Promethazine Hcl 25mg/Ml 1ml Vial IV 08/24/24 14:32 [id number] PRN Nausea And Vomiting Sodium Chloride 25 ml 08/24/24 12:32 Sodium Chloride 0.9% 25ml Bag IV 08/24/24 14:32 NEEDED PRN for Use with IV Promethazine ORDERS Category Date Time Status CT abdomen pelvis wo con Stat Cat Scan 08/24/24 07:17 Completed Refrigeration Service Technician Consult [Consult to Gynecology] [CONS] Routine Cons 08/24/24 09:24 Ordered US transvaginal Stat Exams 08/24/24 08:41 Completed Complete Blood Count Auto Diff Stat Lab 08/24/24 06:54 Completed Comprehensive Metabolic Panel Stat Lab 08/24/24 06:54 Completed Lipase Stat Lab 08/24/24 06:54 Completed UA [Urinalysis and Microscopic] Stat Lab 08/24/24 08:50 Completed Urine Culture Stat Micro 08/24/24 08:55 Received ECG initial [place] Stat Y 08/24/24 13:57 Completed Medical Decision Narrative: In summary, this patient is a 34-year-old female presenting to the Emergency Department for evaluation of flank pain. Differential diagnoses considered include but are not limited to pyelonephritis, ureterolithiasis, colitis, diverticulitis, gastritis. Ruling out the most morbid conditions drove assessment. It should be noted patient's history includes endometriosis and IBS which may or may not be at goal therapy. This complicates all aspects of care by increasing patient's risk for morbidity. I reviewed patient's past medical records and noted evaluation yesterday and diagnosis of strep in [facility] as detailed in HPI. I also noted prior hysterectomy. On exam, the patient is sitting upright in no acute distress. She is afebrile and nontoxic-appearing with reassuring vitals on cardiac telemetry. She has left-sided abdominal tenderness but no rebound or guarding. Workup included CBC, CMP, lipase, urinalysis, urine culture, CT abdomen pelvis without IV contrast. She is given a bolus of IV fluids as well as IV Toradol, acetaminophen, morphine, and Zofran for symptomatic improvement. I independently interpreted CT scan prior to the radiologist read and noted large complex left ovarian cyst like structure. Please see their read for final interpretation. Labs were obtained that demonstrated reassuring CBC without significant leukocytosis, though she does have mild anemia. Chemistry is reassuring as well. Urine is not overtly concerning for infection and is slightly contaminated with squamous cells. On reassessment, patient had some improvement in her pain with normal vitals on cardiac telemetry. Given large cystic structure on left ovary on CT scan, I did order transvaginal ultrasound. Transvaginal ultrasound concerning for multiple ovarian cyst on the left and 1 on the right. 1 cyst on the left was concerning for hemorrhagic cyst, and given her severe pain I decided to consult gynecology. She did have flow on ultrasound making torsion less likely, however given the size of her ovary it is possible she could be intermittent torsion causing her intermittent severe pain. Pain did recur after return from ultrasound, so she is given another dose of IV morphine. I had an interactive discussion with Dr. Weeks who evaluated the patient and then took her to the operating room for left oophorectomy. Critical Care Critical Care Time Critical Care Time: No
[2024-08-24 07:25] LABS: Basophils % 0.4 % (0.1-2.0); Eosinophils # 0.1 K/mm3 (0.0-0.4); Eosinophils % 0.9 % (0.1-12.0); Hematocrit 32.6 % (37.0-47.0); Hemoglobin 10.8 g/dL (12.2-16.2); Lymphocytes % 10.7 % (10-50); Mean Corpuscular HGB Conc 33.1 g/dL (31.8-35.4); Mean Corpuscular Hemoglobin 29.5 pg (27.0-31.2); Mean Corpuscular Volume 89.1 fl (81-99); Mean Platelet Volume 10.9 fl (7.4-10.4); Monocytes # 0.5 K/mm3 (0.1-1.0); Neutrophils # 7.5 K/mm3 (1.8-7.8); Neutrophils % 82.6 % (37.0-80.0); Platelet Count 154 K/mm3 (142-424); Red Blood Count 3.66 M/mm3 (4.20-5.40); Red Cell Distribution Width 12.9 % (11.5-17.5); White Blood Count 9.1 K/mm3 (4.8-10.8)
[2024-08-24] MEDS: LACTATED RINGERS 1000ML 1,000 ML 999 ML IV (07:32)
[2024-08-24] MEDS: ACETAMINOPHEN 1,000MG/100ML VIAL 1000 MG IV ×2 (07:32→14:37)
[2024-08-24] MEDS: MORPHINE 4MG/ML SYRINGE 4 MG IV ×2 (07:33→09:41)
[2024-08-24] MEDS: KETOROLAC 30MG/ML VIAL 15 MG IV (07:33)
[2024-08-24] MEDS: ONDANSETRON 4MG/2ML VIAL 4 MG IV ×2 (07:33→14:37)
[2024-08-24 07:41] LABS: Alanine Aminotransferase 17 U/L (12-78); Albumin Level 3.8 g/dl (3.5-5.0); Albumin/Globulin Ratio 1.5 (1.1-1.8); Alkaline Phosphatase 58 U/L (38-126); Aspartate Amino Transferase 30 U/L (14-36); Bilirubin,Total 0.2 mg/dl (0.2-1.3); Blood Urea Nitrogen 11 mg/dl (7-17); Calcium 8.7 mg/dl (8.4-10.2); Carbon Dioxide 26 mmol/L (22.0-30.0); Chloride 107 mmol/L (98-107); Creatinine Clearance Estimated 124 mL/min (50-200); Estimated Glomerular Filt Rate 115 ml/min (>60); GFR (African American) 139 ML/MIN (>60); Globulin 2.5 g/dL (1.3-3.2); Glucose 102 mg/dl (74-100); Lipase 79 U/L (23-300); Potassium 3.6 mmoL/L (3.5-5.1); Total Protein,Serum 6.3 g/dl (6.3-8.2)
[2024-08-24 07:51] LABS: Anion Gap 10.6 mEq/L (5-15); Sodium 140 mmol/L (136-145)
--- NOTE | 2024-08-24 08:01 | PC.NURSE ---
Rounded on pt and gave meds ordered per OCT, reports pain is 8/10 CASE MANAGEMENT RN at this time.
--- NOTE | 2024-08-24 08:41 | US_ITS ---
PROCEDURE: US TRANSVAGINAL CLINICAL INDICATION: large ovarian cyst COMPARISON: US US TRANSVAGINAL from 12/07/[address] ABDOMEN PELVIS WO CON from 08/24/2024 FINDINGS: Transvaginal sonographic images of the pelvis were obtained. UTERUS: Surgically absent Vaginal vault is intact. LEFT OVARY: 6.4cmx5.3cmx3.8cm with a volume of 65.8ml. There are 2 follicles in the left ovary. They measure 3.5 cm and 2.9 cm respectively There is a hemorrhagic cyst measuring 3.3 cm x 3.2 cm x 3.0 cm RIGHT OVARY: 3.5 cmx 3.2cmx2.5 cm with a volume of 14.8ml. There is a follicle in the right ovary measuring 2.8 cm x 2.1 cm x 2.6 cm. Both ovaries are seen and appear normal. Doppler flow to both ovaries are seen. There is moderate fluid in the cul-de-sac. IMPRESSION: 1. The uterus is surgically absent and the vaginal vault appears intact. 2. The left ovary contains 2 follicles the largest of which measures 3.5 cm. There is a 3.3 cm hemorrhagic cyst within the left ovary. 3. The right ovary is seen and appears normal with a single follicle measuring 2.8 cm. 4. There is moderate fluid in the cul-de-sac. Dictated by: Foreign Weeks MD 08/24/2024 09:41 Foreign Weeks MD in OV 08/24/2024 09:41
--- NOTE | 2024-08-24 08:53 | PC.NURSE ---
pt to us
[2024-08-24 08:58] LABS: Microscopic, Urine URINE MICROSCOPIC (MICROSCOPIC)
--- NOTE | 2024-08-24 09:18 | PC.NURSE ---
PT RETURNED FROM US VIA [employer] AND WHEELCHAIR
[2024-08-24 09:20] LABS: Appearance,Urine SL CLOUDY (Clear); Bilirubin,Urine Negative (Negative); Blood, Urine Negative (Negative); Color,Urine YELLOW (Yellow); Glucose,Urine (UA) Negative (Negative); Ketones,Urine Negative (Negative); Leukocyte Esterase,Urine Negative (Negative); Nitrate,Urine Negative (Negative); Protein,Urine TRACE (Negative); Specific Gravity, Urine >= 1.030 (1.005-1.030); Urobilinogen,Urine 0.2 EU/dl (0.2)
--- NOTE | 2024-08-24 09:28 | PC.NURSE ---
DR VARGAS SPEAKING WITH DR GÓMEZ
[2024-08-24 09:41] LABS: Bacteria,Urine Trace /lpf; WBC,Urine Occasional #/hpf (0-3)
--- NOTE | 2024-08-24 10:32 | PC.NURSE ---
DR GÓMEZ AT BEDSIDE
--- NOTE | 2024-08-24 10:44 | PC.NURSE ---
CONSENT SIGNED FOR SURGERY
--- NOTE | 2024-08-24 10:47 | P.HP_ITS ---
History of Present Illness *Admission Date: 08/24/24 *Reason for visit:: Severe left-sided pain, left hemorrhagic ovarian cyst *History of present illness: This patient is a 34-year-old female who has a history of depression/anxiety, endometriosis, IBS with prior history of hysterectomy presented to the emergency department for evaluation with concern for left flank pain radiating around to her left lower quadrant. She notes that this started last night around 8:00 PM was a mild pain. She states that it felt like someone had punched her in her kidney. Overnight, the pain became much worse. She notes that it is intermittently severe. She arrives by EMS who administered fentanyl prior to arrival. She notes that she was diagnosed with strep yesterday and was given a penicillin shot and is doing better with regards to this. She has had fevers, but she attributed that to the strep. Sore throat symptoms started on Saturday. No dysuria, urinary frequency, urinary urgency, or changes in color of urine. No prior history of kidney stones. She has had a previous total laparoscopic hysterectomy in December 2021. She has a history of endometriosis. Ultrasound done in the ER shows a enlarged left ovary with at least 3 follicles. One of the follicles is a hemorrhagic cyst and is filled with blood clot. There is moderate fluid in the cul-de-sac. [facility] Disclaimer: The information contained in this section may have been updated after the patient was seen, as this information can be updated by other users. 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 current occupational exposures/hazards: No caffeine: Yes Other Medical History Have you received the Flu Vaccine for this season: No Have you received the Pneumonia Vaccine: No Review of Systems Review of Systems Review of systems:: pertinent systems reviewed and negative unless documented below Meds Home Medications and Allergies Home Medications ?Medication ?Instructions ?Recorded ?Confirmed ?Type bupropion HCl 200 mg tablet,12 hr 200 mg PO BID 08/23/24 08/23/24 History sustained-release hydroxyzine HCl 25 mg tablet 25 mg PO DAILY 08/23/24 08/23/24 History propranolol 20 mg tablet 10 mg PO BID 08/23/24 08/23/24 History trazodone 50 mg tablet 25 mg PO DAILY 08/23/24 08/23/24 History New Prescriptions to Start Prescriptions: Allergies Allergy/AdvReac Type Severity Reaction Status Date / Time hydromorphone (From Dilaudid) Allergy Verified 07/05/22 11:15 Exam Data for Last 24 hours Vital signs and Labs for Last 24 Hours: Temp Pulse Resp BP Pulse Ox O2 Del Method 97.9 F 62 16 109/61 L 98 Room Air 08/24/24 06:46 08/24/24 08:30 08/24/24 06:46 08/24/24 08:30 08/24/24 08:30 08/24/24 08:30 Laboratory Results - last 24 hr 08/24/24 06:54: WBC 9.1, RBC 3.66 L, Hgb 10.8 L, Hct 32.6 L, MCV 89.1, MCH 29.5, MCHC 33.1, RDW 12.9, Plt Count 154, MPV 10.9 H, Neut % (Auto) 82.6 H, Lymph % (Auto) 10.7, [place] % (Auto) 5.0, Eos % (Auto) 0.9, Baso % (Auto) 0.4, Neut # (Auto) 7.5, Lymph # (Auto) 1.0, [place] # (Auto) 0.5, Eos # (Auto) 0.1, Baso # (Auto) 0.0, Sodium 140, Potassium 3.6, Chloride 107, Carbon Dioxide 26, Anion Gap 10.6, BUN 11, Creatinine 0.60, Estimated Creat Clear 124, Estimated GFR 115, Est GFR ( Amer) 139, Glucose 102 H, Calcium 8.7, Total Bilirubin 0.2, AST 30, ALT 17, Alkaline Phosphatase 58, Total Protein 6.3, Albumin 3.8, Globulin 2.5, Albumin/Globulin Ratio 1.5, Lipase 79 08/24/24 08:50: Urine Color Yellow, Urine Appearance Sl cloudy, Urine pH 6.0, Ur Specific [place] >= 1.030, Urine Protein Trace, Urine Glucose (UA) Negative, Urine Ketones Negative, Urine Blood Negative, Urine Nitrate Negative, Urine Bilirubin Negative, Urine Urobilinogen 0.2, Ur Leukocyte Esterase Negative, Urine RBC None, Urine WBC Occasional, Ur Squamous Epith Cells 3-5, Urine Bacteria Trace I & O for Last 24 hours: Intake & Output 08/21/24 08/22/24 08/23/24 08/24/24 11:59 11:59 11:59 11:59 Weight 130 lb Constitutional Constitutional: no acute distress *Routine HEENT Exam Head: Present normocephalic Eye: Present EOMI and PERRL ENT: Present mucous membranes moist *Routine Neck Exam Neck: Present supple; Absent lymphadenopathy *Routine Respiratory Exam Respiratory: Present CTA bilaterally *Routine Cardiovascular Exam Cardiovascular: Present RRR *Routine Abdominal Exam Abdominal: Present soft, normoactive bowel sounds and tenderness Comments: She has severe left lower quadrant tenderness. *Routine Rectal Exam Rectal:: deferred *Routine Genitalia Exam Genitalia:: deferred *Routine Extremities Exam Extremities: Absent cyanosis, clubbing or edema *Routine Skin Exam Skin: Present warm; Absent rash *Routine Neurological Exam Neurological: Present alert and oriented X3 Assessment and Plan *Assessment and plan (1) Hemorrhagic cyst of left ovary: Status: Acute Category: Medical Code(s): N83.202 - Unspecified ovarian cyst, left side (2) Pelvic pain: Status: Acute Category: Medical Code(s): R10.2 - Pelvic and perineal pain Plan She has what appears to be a hemorrhagic left ovarian cyst with 2 other follicles about 3-1/2 cm in size. She is in severe pain. She has moderate fluid in the cul-de-sac that I suspect is blood from her hemorrhagic cyst. Will go ahead with a laparoscopic left oophorectomy. We discussed the risk of surgery that includes bleeding, infection, injuries to the bowel and bladder. We discussed the rare risk of laparotomy. We discussed the fact that she only needs 1 ovary for her hormones to prevent her from going through menopause. All questions were answered and consents were signed.
--- NOTE | 2024-08-24 10:48 | PC.NURSE ---
SURGERY AT BEDSIDE, REPORT GIVEN TO NOVA RECIO
[2024-08-24] MEDS: CEFAZOLIN SODIUM 2 GM in 0.9 % SODIUM CHLORIDE 100 ML IV (11:30)
[2024-08-24] MEDS: ROPIVACAINE 0.5% 30ML VIAL 150 MG ×2 (11:53→11:56)
[2024-08-24] MEDS: SODIUM CHLORIDE IRRIG SOLUTION 3,000 ML 200 ML IR (11:53)
--- NOTE | 2024-08-24 11:53 | P.PNANES_ITS ---
[facility] Disclaimer: The information contained in this section may have been updated after the patient was seen, as this information can be updated by other users. 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 current occupational exposures/hazards: No caffeine: Yes [facility] Anesthesia Checklist Patient Identification Patient Identification: Arm Band Structural Data Admitted From: Home Planned Operative Procedure/s: Laparoscopic Left Oopherectomy Consent for Planned Operative Procedure(s) Verified: Yes Verified Documents: Surgical Consent and History and Physical NPO Status Verified Time NPO: 00:00 Additional verifications Anesthesia Reactions: No Hx Blood Transfusions: No Blood Transfusion Reaction: No Airway Assessment Mallampati Score:: Class II C-Spine Mobility Assessed: Yes TMJ Mobility Assessed: Yes Dentition: Good Dentition Neurological Assessment Level of Consciousness: Awake, Alert and Appropriate Anesthesia Plan Anesthesia Risk discussed: Yes Anesthesia Plan: Verified ASA Class: II Anesthesia Type: General
--- NOTE | 2024-08-24 12:31 | P.PNANES_ITS ---
[facility] Anesthesia Record Part I Anesthesia Record I Intake, IV Amount: 1,000 Hydration: Adequate Estimated blood loss (mL): 25 Urine output (mL): 0 Blood Products used (#): none Blood Pressure: 103/61 SaO2: 100 Pulse Rate: 60 Airway Patency: Patent Respiratory Rate: 16 Temperature: 98.2 F Patient is:: Drowsy and Stable Stable to PACU at:: 12:25
--- NOTE | 2024-08-24 13:36 | EXP.OP.NOTE ---
Date of procedure: 08/24/24 Pre-op Diagnosis:: Left lower quadrant pain, hemorrhagic left ovarian cyst Post-op Diagnosis:: Left lower quadrant pain, hemorrhagic left ovarian cyst, ovarian torsion Procedure performed:: Laparoscopic left oophorectomy Surgeon:: Foreign Weeks MD CREATIVE SERVICES COORDINATOR:: Gregory Romero Anesthesia: GETA Estimated blood loss (mL): 25 Clinical Note:: She is a 34-year-old lady who has had a previous hysterectomy. She has a history of endometriosis. She had onset of left lower quadrant pain last night and it got worse this morning causing nausea vomiting and it required her to come by ambulance to the emergency department. Ultrasound showed 3 separate cysts on her ovary, one of them being hemorrhagic appearing. Operative findings:: Her deep pelvis appeared normal. There was a small amount of straw-colored fluid. The right ovary appeared normal. The left ovary was enlarged and had to separate cysts. One of the cyst was filled with dark-colored fluid and the second cyst had dark-colored fluid with a small clot. The ovary itself was twisted upon itself and there was at least 1 and possibly 1-1/2 twists of the ovary on its pedicle. There were a number of spots of old endometriosis within the pelvis as well. These were 1 to 2 mm in size. There did not appear to be any active endometriosis. Operative note:: She was taken the operating room where general anesthesia was found to be adequate. She is prepped regular sterile fashion in the seventh position. A sponge forcep was placed in the vagina. I injected 10 cc of quarter percent ropivacaine around the umbilicus and made a small incision within the umbilicus. I then inserted a Veress needle into the abdominal cavity. The abdominal cavity was insufflated with carbon oxide gas to a pressure of 20 mmHg. I then inserted a 11 mm trocar under direct vision. I then injected through and through the pubic hairline, made a small incision and inserted a 5 mm trocar here under direct vision. I identified the inferior epigastric arteries on the left side and I was able to go slightly lateral to these and injected through and through with ropivacaine. I then inserted a 5 mm trocar here under direct vision. The findings were as previously dictated. I then grasped the left ovary and using harmonic scalpel drained the cysts within the ovary. As previously stated there was 1 cyst that had some tea colored fluid and a second 1 that had tea colored fluid along with a small clot. I untwisted the ovary and then placed 2 Endoloops on the infundibulopelvic ligament. The ovary was then cut away. I then rinsed the pelvis well with warm saline and assured hemostasis. I then placed an Endo Catch bag through the 11 mm trocar site with a 5 mm camera at the suprapubic site. The ovary was placed in the Endo Catch bag and removed through the umbilical site. We then rinsed the pelvis well once again with normal saline and hemostasis was assured. We then injected approximately 30 cc of 0.25% ropivacaine into the pelvis. The secondary trocars were removed under direct vision and the sites were hemostatic. The gas was out of the abdomen and the 11 mm trocar and camera removed together. No bowel was seen to follow. The 11 mm trocar site was then closed deeply by grasping the fascia and closing this with interrupted [id number] 2-0 Vicryl suture. This was followed by a second subcutaneous suture and then the skin was closed with subcuticular 4-0 Monocryl suture. The 5 mm trocar sites were closed with subcuticular 4-0 Monocryl suture. She tolerated the procedure well and was returned to the recovery room in excellent condition. Her estimated blood loss was less than 25 cc. Condition: stable Disposition: PACU Specimens:: Left ovary Complications:: None
--- NOTE | 2024-08-24 13:40 | SUR.PHASEI ---
1305- R Feeback INDUSTRIAL PSYCHOLOGY TEACHER called to come to bedside and evaluate patient in PACU. The patient continuously desaturates to the low 80's despite O2 at 4LNC. Patient is in and out of consciousness as well despite efforts to keep patient awake. When patient is awake, she is only satting 90% RA. Interventions like deep breathing and incentive spirometry used. Patient is clear throughout all lobes of lungs. Patient does complain of SOA. 1310- R Feeback INDUSTRIAL PSYCHOLOGY TEACHER at the bedside to evaluate patient.
--- NOTE | 2024-08-24 13:57 | ECG_ITS ---
APPROVED REPORT Exam: Resting ECG HR:81 bpm ECG Measurements Heart Rate 81 AXES ND 141 P 68 QRSd 89 QRS 60 QT 409 T 56 QTc 446 Conclusion SINUS RHYTHM POSSIBLE RIGHT VENTRICULAR CONDUCTION DELAY [RSR (QR) IN V1/V2] BORDERLINE ECG UNCONFIRMED REPORT Electronically signed by : Sander Godwin MD 08/25/2024 19:19:58
[2024-08-24] MEDS: OXYCODONE 10MG W/APAP 325MG TABLET 1 EACH PO (14:36)
--- NOTE | 2024-08-24 14:53 | SUR.PHASEI ---
1348- Patient started complaining of chest pain and pressure that is 7/10 and does not radiate anywhere. Ramón Romero CRNA and Dr Weeks made aware. EKG ordered. Respiratory called for a stat EKG. Patient also complains of L flank pain 6/10, does not radiate. no discoloration noted, very tender to touch. 1353- Tried calling Dr Weeks's office to see if he was available to discuss ongoing pain/ lethargy/ and oxygenation of the patient. Was told he was in a patients room at the moment and they would leave a message to call back. 1359- Dr Weeks called. He was notified of ongoing lethargy/drowsiness of the patient after an hour and a half of PACU time. The patient has also desatted numerous times to the low 80's, at times even with nasal cannula in place. The patient has 6/10 ongoing pain in her abdomen and L flank. We discussed potentially giving the patient narcan to reverse potential opioid effects between the ER and the OR and discussed admission. Spoke to Ramón Romero CRNA about what Dr Weeks said in regards to narcan vs admission. He stated he was going to call Dr Weeks and speak to him. 1404- Ramón Romero CRNA looked at EKG and said it was good. No abnormalities. 1405- Hussein Pal CRNA at bedside to evaluate administering narcan. Patient more awake at this time, but continues to desaturate to the high 80's on RA. 1420- Ramón Romero CRNA spoke to this RN on the phone nad gvae verbal orders to administer 1,000mg of IV tylenol if it had been 6 hours since the last administration, to not give anymore IV pain medications, and to contact Dr Weeks about administering 10mg of PO Percocet. All orders repeated and correct. verbal order faxed to pharmacy regarding Iv tylenol administration. 1425- spoke to Dr Weeks on the phone to see about administering PO Percocet. Dr Weeks gave verbal orders for 10 mg PO percocet once. verbal order repeated and correct. verbal order faxed to pharmacy. 1430- 1G IV tylenol, 4mg of zofran and 10 mg of percocet administered per MAR at this time. Patient still complaining of abdominal pain 6/10 without radiation to surrounding areas.
--- NOTE | 2024-08-25 08:20 | P.PNANES_ITS ---
[facility] Anesthesia Record Part II Anesthesia Record Part II Discharge Time: 15:15 Destination: Surgical Day Care (OP Surgery) PACU nurse assessment reviewed?: Yes Patient Condition:: Good Anesthesia Complications:: None Swallowing reflex intact?: Yes Airway Patency: Patent Cyanosis?: No Blood Pressure: 136/65 SaO2: 92 Respiratory Rate: 18 Pulse Rate: 81 Temperature: 98.2 F Mental Status: Alert & Oriented Pain level:: 6 Nausea and/or vomitting:: None Intake, IV Amount: 0 Hydration: Adequate
[2024-08-25 08:21] VITALS: BP 136/65; PULSE 81; RESP 18; TEMP 36.8; O2SAT 92
== END 2024-08-24 15:46 | disposition home or self-care (01) ==
LOC: ER 07:08 → OR 10:47
PROVIDERS: Emergency Provider Emergency Medicine; PCP Family Medicine; Visit Provider Nurse Practitioner Obstetrics & Gynecology
PROC: (CPT 58661; principal; 2024-08-24 11:00)
DX: R10.32 Left lower quadrant pain (principal); N83.202 Unspecified ovarian cyst, left side; N83.512 Torsion of left ovary and ovarian pedicle
CPT/HCPCS: 58661; 74176; 76830; 80053; 81001; 83690; 85025; 87086; 93005; J3490; J0131; J0690; J1100; J1885; J2250; J2270; J2405; J3010; J7120